=== PATIENT | male | born 1930 | race Caucasian/White ===

== ENCOUNTER 2020-11-04 09:57 | Inpatient (IN) | payer MEDICARE, OTHER ==
[~2020-11-04] VITALS: Ht 165.1 cm; Wt 56.9 kg
[2020-11-04] MEDS ORDERED: MEMA10TA PO (10:27)
[2020-11-04] MEDS ORDERED: VALS80TA2 PO (10:27)
[2020-11-04] MEDS ORDERED: ZINC1CAP3 PO (10:27)
[2020-11-04] MEDS ORDERED: ACET-73 PO (10:27)
[2020-11-04] MEDS ORDERED: ATOR10TA PO (10:27)
[2020-11-04] MEDS ORDERED: ASCO500C17 PO (10:27)
[2020-11-04] MEDS ORDERED: DOCU-141 PO (10:27)
[2020-11-04] MEDS ORDERED: MULT-439 PO (10:27)
[2020-11-04] MEDS ORDERED: ESCI10TA PO (10:27)
[2020-11-04] MEDS ORDERED: IV NS 0.9% 1,000 ML BAG IV ONE (10:30)
[2020-11-04 10:49] LABS: BASOPHILS % (AUTO) 0.2 % (0.0-2.0); EOSINOPHILS % (AUTO) 0.8 % (0.0-6.0); HEMATOCRIT 21 % (39-51); LYMPHOCYTES # (AUTO) 1.3 /CMM (0.8-4.8); LYMPHOCYTES % (AUTO) 18.4 % (20.0-44.0); MEAN CORPUSCULAR HGB CONC 29 g/dl (31.0-36.0); MEAN CORPUSCULAR VOLUME 113 fL (80-96); MONOCYTES # (AUTO) 0.4 /CMM (0.1-1.30); MONOCYTES % (AUTO) 5.9 % (2.0-12.0); NEUTROPHILS # (AUTO) 5.4 /CMM (1.8-8.9); NEUTROPHILS % (AUTO) 74.7 % (43.0-81.0); PLATELET COUNT (AUTO) 158 /CMM (150-450); WHITE BLOOD COUNT (AUTO) 7.3 K/uL (4.3-11.0)
[2020-11-04 11:00] LABS: BILIRUBIN,URINE Negative (NEGATIVE); BLOOD, URINE Large Ery/uL (NEGATIVE); COLOR,URINE YELLOW (YELLOW); LEUKOCYTE ESTERASE ,URINE Large (NEGATIVE); NITRITE, URINE Positive (NEGATIVE); PH,URINE 5.5 (5.0-8.0); PROTEIN,URINE 100 mg/dl (NEGATIVE); RED BLOOD CELL COUNT(AUTO) 1.89 MIL/uL (4.5-6.0); UGLUCOSE Negative (NEGATIVE); UROBILINOGEN,URINE 0.2 EU/dL (0.2)
[2020-11-04 11:01] LABS: HEMOGLOBIN 6.2 g/dL (13.5-17.5)
--- NOTE | 2020-11-04 11:04 | NUR ---
CALLED NURSING SUP FOR TELE BED.
--- NOTE | 2020-11-04 11:06 | NUR ---
DR. HILLS IS PMD.
[2020-11-04 11:12] LABS: ALANINE AMINOTRANSFERASE 31 U/L (12-78); ALBUMIN 1.8 g/dL (3.4-5.0); ALKALINE PHOSPHATASE 88 U/L (46-116); ASPARTATE AMINOTRANSFERASE 34 U/L (15-37); BILIRUBIN,DIRECT 0.1 mg/dL (0.0-0.2); BILIRUBIN,TOTAL 0.3 mg/dL (0.2-1.0); CALCIUM, SERUM 9.8 mg/dL (8.5-10.1); CARBON DIOXIDE 16 mmol/L (21-32); CREATININE 4.3 mg/dL (0.6-1.3); GLUCOSE 192 mg/dL (74-106); LIPASE 57 U/L (73-393); TOTAL PROTEIN, SERUM 6.1 g/dL (6.4-8.2)
[2020-11-04 11:30] LABS: BACTERIA,URINE Many /HPF (None Seen)
[2020-11-04] MEDS ORDERED: CEFTRIAXONE 1GM BAG (ER ONLY) 1 GM/50 ML PIGGYBACK IV ONE (11:30)
[2020-11-04] MEDS ORDERED: CEFTRIAXONE 1GM BAG (ER ONLY) 50 ML IV ONE (11:30)
[2020-11-04 11:31] LABS: SQUAMOUS EPITHELIAL CELL,UR Rare /HPF (None Seen); WBC,URINE TOO NUMEROUS TO COUN /HPF (0-3)
--- NOTE | 2020-11-04 12:03 | NUR ---
Status quo No acute changes. VS Await admission
[2020-11-04 12:12] LABS: CHLORIDE 126 mmol/L (98-107); SODIUM SERUM 156 mmol/L (136-145)
[2020-11-04 12:16] LABS: UREA NITROGEN, BLOOD 114 mg/dL (7-18)
[2020-11-04] MEDS ORDERED: ALBUTEROL FS 2.5 MG/3 ML VIAL.NEB ONE (12:22)
[2020-11-04] MEDS ORDERED: CALCIUM CHLORIDE 1,000 MG/10 ML DISP.SYRIN ONE (12:29)
[2020-11-04] MEDS ORDERED: ALBUTEROL FS 2.5 MG/3 ML VIAL.NEB NEB ONE (12:30)
[2020-11-04] MEDS ORDERED: CALCIUM CHLORIDE 1,000 MG/10 ML DISP.SYRIN IV ONE (12:30)
--- NOTE | 2020-11-04 13:30 | NUR ---
No beds available at this time. To CT
[2020-11-04] MEDS ORDERED: FUROSEMIDE 40 MG/4 ML VIAL IV ONE (16:30)
[2020-11-04] MEDS ORDERED: Sodium Bicarbonate 150 MEQ in IV D5W 1,000 ML IV PRN (16:30)
[2020-11-04] MEDS ORDERED: SODIUM POLYSTYRENE SULFONATE 15 G/60 ML BOTTLE RC ONE (16:30)
[2020-11-04] MEDS ORDERED: DEXTROSE 50%-WATER 50 ML DISP.SYRIN IV PRN (16:30)
[2020-11-04] MEDS: BLOOD SUGAR DIAGNOSTIC 1 EACH STRIP IN SCH ×2 (17:30→22:00)
[2020-11-04 18:06] LABS: BAND % (MANUAL) 2 % (0.0-5.0); LYMPHOCYTES % (MANUAL) 28 % (16-48); MONOCYTES % (MANUAL) 5 % (0-11.0); NEUTROPHILS % (MANUAL) 65 (42-76)
--- NOTE | 2020-11-04 19:00 | NUR ---
Nurse Marie Billy w/JORGE Garcia for Continuity of Care
--- NOTE | 2020-11-04 19:13 | NUR ---
BED 105
--- NOTE | 2020-11-04 19:15 | NUR ---
PT TO BED 8 PER FAMILY HE HAS HAD WEAKNESS X2 DAYS. PT AAOX0, VSS. NAD NOTED. PT ON 3L O2 VIA NC. PT HAS SKIN TEARS ON LEFT ARM.
--- NOTE | 2020-11-04 20:37 | NUR ---
pt assigend to 328-1
--- NOTE | 2020-11-04 21:26 | NUR ---
REPORT GIVEN TO JORGE VILLAREAL FOR SUMAN
--- NOTE | 2020-11-04 21:42 | NUR ---
called stacie from blood bank, 2 units of [facility]bc [facility], not available at this time.
[2020-11-04] MEDS: ATORVASTATIN 10 MG TABLET PO SCH (22:00)
[2020-11-04] MEDS: DOCUSATE SODIUM 100 MG CAPSULE PO SCH (22:00)
[2020-11-04 22:38] LABS: CARBON DIOXIDE 22 mmol/L (21-32); CREATININE 3.6 mg/dL (0.6-1.3); GLUCOSE 130 mg/dL (74-106)
--- NOTE | 2020-11-04 22:43 | NUR ---
SPOKE W/ PANCHO, HEALTHCARE PARTNER FOR PT'S TRANSFER REFURSAL. PER PANCHO, SHE WILL SPEAK W/ WEIR FISHERMAN
[2020-11-04 22:58] LABS: SODIUM SERUM 158 mmol/L (136-145)
[2020-11-04 22:59] LABS: CHLORIDE 126 mmol/L (98-107); POTASSIUM 6.6 mmol/L (3.5-5.1); UREA NITROGEN, BLOOD 102 mg/dL (7-18)
[2020-11-04 23:34] VITALS: BP 116/85
--- NOTE | 2020-11-04 23:35 | NUR ---
PLC ENGINEER: ADMISSION 89 Y/O male appears confused, does not follow commands. Skin checked done, coccyx open wound. Aleman cath to gravity, urine cloudy with sediments. Made patient comfortable in bed. Fall; Skin precaution maintained.
[2020-11-05] VITALS (8 sets, daily range): BP systolic 112–137; BP diastolic 50–75
[2020-11-05] MEDS ORDERED: ONDANSETRON HCL/PF 4 MG/2 ML VIAL IV PRN (00:30)
[2020-11-05] MEDS ORDERED: IV NS 0.9% 1,000 ML IV PRN (00:30)
--- NOTE | 2020-11-05 00:50 | NUR ---
BUILDING ILLUMINATING ENGINEER: CLARIFICATION ORDERS Called spoke with Dr. Manjarrez, clarified orders for IVF, with orders to dc IVF NS @ 75ml/hr and continue on Sodium Bicarb as active order by Dr. Vera.
--- NOTE | 2020-11-05 02:40 | NUR ---
HEALTH INFORMATION CLERK: BLOOD TRANSFUSION Cheikh Yip patient's grandson consented procedure. Blood transfusion verification checklist completed by 2 RN's. Started 1st unit of PRBC co-signed by JORGE Brown.
--- NOTE | 2020-11-05 03:00 | NUR ---
ADMINISTRATIVE ASSISTANT COORDINATOR: PRBC TRANSFUSING BP remains stable, afebrile, no hematuria. Blood transfusion in progress.
--- NOTE | 2020-11-05 03:33 | NUR ---
DIRECTOR INTEGRATED: PRBC TRANSFUSING BP remains stable, afebrile, no hematuria. Blood transfusion in progress.
--- NOTE | 2020-11-05 05:38 | NUR ---
SUPPLY TECH: BLOOD INFUSED PRBC 1 unit infused, VS stable. No Hematuria, no fever or chills.
--- NOTE | 2020-11-05 06:00 | NUR ---
PACKAGE CLERK: BLOOD TRANSFUSION Blood transfusion verification checklist completed by 2 RN's. 2nd unit of PRBC started co-signed by JORGE Brown.
--- NOTE | 2020-11-05 07:19 | NUR ---
SERVICE CENTER APPRAISER: END OF SHIFT REPORT Patient in bed, confused, does not follow commands. 2nd unit PRBC transfusing, VS remains stable, afebrile, no chills, no hematuria. AFIB HR 111 in the Tele monitor. Oxygen sat on high 90's at 3L via NC. Coccyx open wound, skin precaution maintained. Wound consult to follow. Endorsed to JORGE Villalobos.
[2020-11-05] MEDS: BLOOD SUGAR DIAGNOSTIC 1 EACH STRIP IN SCH ×4 (07:56→21:41)
[2020-11-05] MEDS: PANTOPRAZOLE 40 MG TABLET.DR PO SCH (07:56)
--- NOTE | 2020-11-05 08:00 | NUR ---
RN Opening note Received patient in bed awake able to responds all stimuli, does no appears pain or discomfort. ptient is on RBC 2nd bag, no s/s of reaction observed. Skin is warm to touch keep clean/dry, intact IV site on right FA 22g. Respiratory even and unlabored with oxygen at 3LPM O2sat 95%, no sbo or distress observed. Kept bed locked with elevated HOB for ensure airway and aspiration precaution also lowest bed position for safety. Call light within reach will continue to monitor.
--- NOTE | 2020-11-05 08:30 | NUR ---
Blood transfusion id done, V/S t-98.8, bp-112/69, r-20, p-104, O2sat 95%. No s/s of reaction from blood transfusion, skin is warm to touch no skin rash observed. Will continue to monitor. Addendum: 11/05/20 at 1551 by MARYBETH FUENTES RN Evelio
--- NOTE | 2020-11-05 08:30 | NUR ---
Blood transfusion done, V/S: t-98.8, bp-112/69, r-20, p-104, O2sat 95%. No s/s of reaction from blood transfusion, skin is warm to touch no skin rash observed. Will continue to monitor.
[2020-11-05] MEDS: ASCORBIC ACID 500 MG TABLET PO SCH (09:27)
[2020-11-05] MEDS: MULTIVITAMINS,THERAGRAN 1 UDTAB TABLET PO SCH (09:27)
[2020-11-05] MEDS: ZINC SULFATE 220 MG CAPSULE PO SCH (09:27)
[2020-11-05] MEDS: ESCITALOPRAM OXALATE (10 MG) 10 MG TABLET PO SCH (09:28)
[2020-11-05] MEDS: MEMANTINE HCL 5 MG TABLET PO SCH (09:28)
[2020-11-05 09:41] LABS: BASOPHILS % (AUTO) 0.2 % (0.0-2.0); EOSINOPHILS % (AUTO) 0.3 % (0.0-6.0); HEMATOCRIT 31 % (39-51); HEMOGLOBIN 9.7 g/dL (13.5-17.5); LYMPHOCYTES # (AUTO) 1.5 /CMM (0.8-4.8); LYMPHOCYTES % (AUTO) 14.8 % (20.0-44.0); MEAN CORPUSCULAR HGB CONC 32 g/dl (31.0-36.0); MEAN CORPUSCULAR VOLUME 95 fL (80-96); MONOCYTES # (AUTO) 0.5 /CMM (0.1-1.30); MONOCYTES % (AUTO) 5.3 % (2.0-12.0); NEUTROPHILS # (AUTO) 8.2 /CMM (1.8-8.9); NEUTROPHILS % (AUTO) 79.4 % (43.0-81.0); PLATELET COUNT (AUTO) 167 /CMM (150-450); RED BLOOD CELL COUNT(AUTO) 3.25 MIL/uL (4.5-6.0); WHITE BLOOD COUNT (AUTO) 10.4 K/uL (4.3-11.0)
[2020-11-05 10:26] LABS: ALANINE AMINOTRANSFERASE 32 U/L (12-78); ALBUMIN 1.8 g/dL (3.4-5.0); ALKALINE PHOSPHATASE 88 U/L (46-116); ASPARTATE AMINOTRANSFERASE 30 U/L (15-37); BILIRUBIN,TOTAL 0.6 mg/dL (0.2-1.0); CALCIUM, SERUM 9.4 mg/dL (8.5-10.1); CARBON DIOXIDE 21 mmol/L (21-32); GLUCOSE 107 mg/dL (74-106); MAGNESIUM 2.2 mg/dL (1.8-2.4); PHOSPHORUS 4.9 mg/dL (2.5-4.9); POTASSIUM 5.4 mmol/L (3.5-5.1); TOTAL PROTEIN, SERUM 6.1 g/dL (6.4-8.2)
[2020-11-05 10:31] LABS: CHLORIDE 126 mmol/L (98-107); SODIUM SERUM 160 mmol/L (136-145)
[2020-11-05 10:32] LABS: UREA NITROGEN, BLOOD 92 mg/dL (7-18)
[2020-11-05 10:59] LABS: CREATINE KINASE, TOTAL 236 U/L (39-308); FERRITIN 3097 ng/mL (8-388)
[2020-11-05] MEDS: CEFTRIAXONE 1 G in IV D5W 50 ML IV SCH (11:28)
[2020-11-05 13:39] LABS: IRON, SERUM 25 ug/dl (50-175); TOTAL IRON BINDING CAPACITY 152 ug/dl (250-450)
[2020-11-05] MEDS: Sodium Bicarbonate 100 MEQ in IV D5/0.45 NACL 1,000 ML IV PRN (17:57)
--- NOTE | 2020-11-05 18:15 | NUR ---
RN Closing note Patient in bed resting does no appears pain or distress, skin care done include sacral wound care. Skin is warm to touch intact IV site on left arm 22g running Sodium Bicarbonate at 100ml. Respiratory even and unlabored with oxygen at 3LPM via n/c. Kept locked bed with elevated HOB for ensure airway and aspiration precaution also lowest position for safety, call light within reach, will endorse building coordinator.
--- NOTE | 2020-11-05 18:54 | NUR ---
Patient noted positive blood Cx: Gram variable bacilli, informed MD.
--- NOTE | 2020-11-05 19:50 | NUR ---
STOCK UNLOADER NOTE: PATIENT RESTING IN BED, NO ACUTE DISTRESS NOTED. BREATHING EVEN AND UNLABORED, NO SOB NOTED. IV TO LEFT ARM IN PLACE, INFUSING D5 1/2 NA BICARBONATE AT 100ML/HR. PIPER CATHETER IN PLACE, DRAINING CLEAR YELLOW URINE. BED LOCKED AND IN LOWEST POSITION, CALL LIGHT IN REACH. WILL CONTINUE TO MONITOR.
[2020-11-05] MEDS ORDERED: MEGE40TA5 PO (20:38)
[2020-11-05] MEDS ORDERED: RISP0.5T5 PO (20:38)
[2020-11-05] MEDS: DOCUSATE SODIUM 100 MG CAPSULE PO SCH (21:41)
[2020-11-05] MEDS: ATORVASTATIN 10 MG TABLET PO SCH (21:41)
--- NOTE | 2020-11-05 23:00 | NUR ---
BOX SPINNER NOTE: PATIENT BLOOD SUGAR LEVEL 92MG/DL, NO INSULIN NEEDED PER SLIDING SCALE. NO S/S OF HYPOGLYCEMIA NOTED. SNACKS PROVIDED. WILL CONTINUE TO MONITOR.
[2020-11-06] MEDS: Sodium Bicarbonate 100 MEQ in IV D5/0.45 NACL 1,000 ML IV PRN (04:39)
--- NOTE | 2020-11-06 06:30 | NUR ---
TRUCK LEASING MANAGER NOTE: PATIENT RESTING IN BED, NO ACUTE DISTRESS NOTED. BREATHING EVEN AND UNLABORED, NO SOB NOTED. IV TO LEFT ARM IN PLACE, INFUSING D5 1/2 NA BICARBONATE AT 100ML/HR. PIPER CATHETER IN PLACE, DRAINED 525ML OF CLEAR YELLOW URINE. PATIENT BLOOD SUGAR LEVEL 110MG/DL, NO INSULIN NEEDED PER SLIDING SCALE. NO S/S OF HYPER/HYPOGLYCEMIA NOTED. BED LOCKED AND IN LOWEST POSITION, CALL LIGHT IN REACH. WILL ENDORSE TO DAY NURSE TO CONTINUE WITH PLAN OF CARE.
[2020-11-06] MEDS: BLOOD SUGAR DIAGNOSTIC 1 EACH STRIP IN SCH ×4 (06:35→22:17)
[2020-11-06 06:54] LABS: BASOPHILS % (AUTO) 0.2 % (0.0-2.0); EOSINOPHILS % (AUTO) 0.4 % (0.0-6.0); HEMATOCRIT 33 % (39-51); HEMOGLOBIN 10.2 g/dL (13.5-17.5); LYMPHOCYTES # (AUTO) 1.9 /CMM (0.8-4.8); LYMPHOCYTES % (AUTO) 17.6 % (20.0-44.0); MEAN CORPUSCULAR HGB CONC 31 g/dl (31.0-36.0); MEAN CORPUSCULAR VOLUME 95 fL (80-96); MONOCYTES # (AUTO) 0.5 /CMM (0.1-1.30); MONOCYTES % (AUTO) 4.6 % (2.0-12.0); NEUTROPHILS # (AUTO) 8.5 /CMM (1.8-8.9); NEUTROPHILS % (AUTO) 77.2 % (43.0-81.0); PLATELET COUNT (AUTO) 142 /CMM (150-450); RED BLOOD CELL COUNT(AUTO) 3.46 MIL/uL (4.5-6.0); WHITE BLOOD COUNT (AUTO) 11.1 K/uL (4.3-11.0)
--- NOTE | 2020-11-06 07:30 | NUR ---
RN OPENING NOTE PATIENT RESTING IN BED, NO ACUTE DISTRESS NOTED. ON O2 AT 3L/MIN. BREATHING EVEN AND UNLABORED, NO SOB NOTED. IV TO LEFT ARM IN PLACE, INFUSING D5 1/2 NS AT 100ML/HR. PIPER CATHETER IN PLACE, DRAINING CLEAR YELLOW URINE. BED LOCKED AND IN LOWEST POSITION, CALL LIGHT IN REACH. WILL CONTINUE TO MONITOR.
[2020-11-06 07:36] LABS: ALANINE AMINOTRANSFERASE 27 U/L (12-78); ALBUMIN 1.7 g/dL (3.4-5.0); ALKALINE PHOSPHATASE 84 U/L (46-116); ASPARTATE AMINOTRANSFERASE 27 U/L (15-37); BILIRUBIN,TOTAL 0.4 mg/dL (0.2-1.0); CARBON DIOXIDE 23 mmol/L (21-32); CREATININE 2.4 mg/dL (0.6-1.3); GLUCOSE 136 mg/dL (74-106); MAGNESIUM 2.1 mg/dL (1.8-2.4); PHOSPHORUS 4.6 mg/dL (2.5-4.9); POTASSIUM 4.6 mmol/L (3.5-5.1); TOTAL PROTEIN, SERUM 6.1 g/dL (6.4-8.2); UREA NITROGEN, BLOOD 76 mg/dL (7-18)
[2020-11-06 07:50] LABS: CHLORIDE 127 mmol/L (98-107); SODIUM SERUM 163 mmol/L (136-145)
--- NOTE | 2020-11-06 07:50 | NUR ---
RECEIVED CALL FROM LAB RE: CRITICAL LAB RESULTS. SODIUM IS 163 AND CHLORIDE IS 127. NOTIFIED DR. LAN. AWAITING FOR RESPONSE.
[2020-11-06 08:00] VITALS: BP 135/84
[2020-11-06] MEDS: ZINC SULFATE 220 MG CAPSULE PO SCH (08:45)
[2020-11-06] MEDS: ASCORBIC ACID 500 MG TABLET PO SCH (08:45)
[2020-11-06] MEDS: PANTOPRAZOLE 40 MG TABLET.DR PO SCH (08:45)
[2020-11-06] MEDS: ESCITALOPRAM OXALATE (10 MG) 10 MG TABLET PO SCH (08:45)
[2020-11-06] MEDS: MEMANTINE HCL 5 MG TABLET PO SCH (08:45)
[2020-11-06] MEDS: MULTIVITAMINS,THERAGRAN 1 UDTAB TABLET PO SCH (08:45)
--- NOTE | 2020-11-06 09:15 | NUR ---
PER DR. LAN. CHANGE IV FLUIDS WITH D5W AT 100ML/.HR
[2020-11-06] MEDS: IV D5W 1,000 ML IV PRN (09:59)
[2020-11-06 10:07] LABS: PTH, INTACT 29 pg/mL (15-65)
[2020-11-06] MEDS: CEFTRIAXONE 1 G in IV D5W 50 ML IV SCH (10:22)
--- NOTE | 2020-11-06 11:30 | NUR ---
pt accidentally pulled out his iv. iv access reinserted on L forearm g20. intact and patent and flushing well
[2020-11-06 12:00] VITALS: BP 105/58
[2020-11-06 16:00] VITALS: BP 156/71
--- NOTE | 2020-11-06 19:46 | NUR ---
RN CLOSING NOTES PATIENT RESTING IN BED, NO ACUTE DISTRESS NOTED. ON O2 AT 3L/MIN. BREATHING EVEN AND UNLABORED, NO SOB NOTED, SATURATING WELL. NO SIGNS AND SYMPTOMS OF PAIN OR DISCOFORT. IV ACCESS NOTED ON L FOREARM G20. INTACT AND PATENT AND FLUSHING WELL WITH D5W RUNNING AT 100ML/HR. PIPER CATHETER IN PLACE, DRAINING CLEAR YELLOW URINE. WOUND CARE TX DONE. ALL NEEDS MET AND ATTENDED. ALL DUE MEDS ADMINISTERED. NO ASE NOTED. KEPT PT CLEAN AND DRY. SAFETY PRECAUTIONS IN PLACE. BED LOCKED AND IN LOWEST POSITION, CALL LIGHT IN REACH. ENDORSED TO JAILENE PATEL CLIPPING MARKER FOR SUMAN.
--- NOTE | 2020-11-06 19:47 | NUR ---
RN PM OPENING NOTE REPORT RECIEVED FROM NEGAR PATEL. PATIENT IN BED, NO APPARENT DISTRESS NOTED. ON O2 AT 3L/MIN. BREATHING EVEN AND UNLABORED, NO SOB NOTED, SATURATING WELL. NO SIGNS AND SYMPTOMS OF PAIN OR DISCOFORT. IV ACCESS NOTED ON L FOREARM G20. INTACT AND PATENT AND FLUSHING WELL WITH D5W RUNNING AT 100ML/HR. PIPER CATHETER IN PLACE, DRAINING CLEAR YELLOW URINE. WOUND CARE TX DONE. ALL NEEDS MET AND ATTENDED. ALL DUE MEDS ADMINISTERED. NO ASE NOTED. KEPT PT CLEAN AND DRY. SAFETY PRECAUTIONS IN PLACE. BED LOCKED AND IN LOWEST POSITION, CALL LIGHT IN REACH. WILL CONT TO MONITOR.
[2020-11-06 20:00] VITALS: BP 110/44
--- NOTE | 2020-11-06 21:14 | NUR ---
MEGACE NOT ORDERED GRANDSON UPSET; REQUESTING ENSURE WITH MEALS. pepe strong called. UPATED WITH GRANDFATHERS CONDITOIN AND POC. PEPE UPSET THAT MEGACE HAS NOT BEEN GIVEN WHILE HERE AT HOSPITAL AND REQUESTING THAT IT BE ORDERED. INFORMED THAT WILL FOLLOW UP WITH DOCTOR. ALL REQUESTING ENSURE BE ORDERED WITH MEALS. WILL ENDORSE TO DAY SHIFT TO FOLLOW UP WITH DOCTOR.
[2020-11-06] MEDS: DOCUSATE SODIUM 100 MG CAPSULE PO SCH (22:03)
[2020-11-06] MEDS: ATORVASTATIN 10 MG TABLET PO SCH (22:03)
[2020-11-06] MEDS: ACETAMINOPHEN 325 MG TABLET PO PRN (22:32)
[2020-11-07] VITALS: BP 129/54
[2020-11-07] MEDS: IV D5W 1,000 ML IV PRN ×2 (03:15→18:30)
[2020-11-07 04:00] VITALS: BP 112/57
[2020-11-07] MEDS: BLOOD SUGAR DIAGNOSTIC 1 EACH STRIP IN SCH ×4 (06:35→21:30)
[2020-11-07] MEDS: INSULIN REGULAR, HUMAN 100 UNIT/ML 3 ML VIAL SQ PRN (06:36)
--- NOTE | 2020-11-07 07:06 | NUR ---
INFRASTRUCTURE SOLUTIONS ARCHITECT OPENING NOTES RECEIVED PT RESTING IN BED AT THIS TIME. PT AOX1. CONFUSE. NO SOB NOTED, NO S/S OF ANY ACUTE DISTRESS NOTED. NO C/O PAIN AT THIS TIME. RESPIRATIONS ARE EVEN AND UNLABORED. IV ACCESS NOTED IN LFA G#22, INTACT, PATENT AND FLUSHING WELL. PT ON EXTERNAL TELE CATH LAB NURSE READING SR IN 90S. PIPER CATHETER IN PLACE, DRAINING TO GRAVITY, CLEAR YELLOW URINE OUTPUT. ASPIRATION AND SAFETY PRECAUTION IN PLACE AND MAINTAINED AT ALL TIMES. BED IN LOWEST LOCKED POSITION, HOB ELEVATED, SIDE RAILS UP X 2, CALL LIGHT AND TABLE WITHIN REACH. WILL CONTINUE TO MONITOR
[2020-11-07 08:00] VITALS: BP 119/55
[2020-11-07] MEDS: ESCITALOPRAM OXALATE (10 MG) 10 MG TABLET PO SCH (08:29)
[2020-11-07] MEDS: MEMANTINE HCL 5 MG TABLET PO SCH (08:29)
[2020-11-07] MEDS: MULTIVITAMINS,THERAGRAN 1 UDTAB TABLET PO SCH (08:29)
[2020-11-07] MEDS: PANTOPRAZOLE 40 MG TABLET.DR PO SCH (08:29)
[2020-11-07] MEDS: ZINC SULFATE 220 MG CAPSULE PO SCH (08:29)
[2020-11-07] MEDS: ASCORBIC ACID 500 MG TABLET PO SCH (08:29)
[2020-11-07] MEDS ORDERED: Z GUARD REMEDY 2 OZ OINT TP PRN (10:00)
--- NOTE | 2020-11-07 10:00 | NUR ---
WOUND CARE CONSULT: PT PRESENTS WITH FOUL PURULENT STAGE 4 SACRAL ULCER, PRESENT ON ADMISSION. RECOMMEND SURGICAL CONSULT. DR LOMELI NOTIFIED OF CONSULT REQUEST. RECOMMENDATIONS MADE FOR SKIN PROTECTION. DISCUSSED WITH NURSING STAFF. [facility] IN AGREEMENT WITH PLAN OF CARE. Addendum: 11/07/20 at 1002 by BOBBI PRADHAN WNDNU Amended: Links added.
[2020-11-07] MEDS: Z GUARD REMEDY 2 OZ OINT TP SCH (10:37)
[2020-11-07] MEDS: CEFTRIAXONE 1 G in IV D5W 50 ML IV SCH (10:43)
[2020-11-07 12:00] VITALS: BP 120/61
[2020-11-07] MEDS ORDERED: LIDOCAINE 1%-EPI 1:100,000 20 ML VIAL TP STA (12:44)
--- NOTE | 2020-11-07 12:57 | NUR ---
PT SCHEDULED FOR SERIAL DEBRIDEMENT OF THE SACRUM, TELEPHONE CONSENT OBTAINED FROM TOSHIA FRAIRE, PT's DAUGHTER ([phone]). WITNESSED AND SIGNED BY A SECOND NURSE, KENA. CONSENT FILED IN CHART. WILL CONTINUE TO MONITOR AND CONTINUE WITH PLAN OF CARE
--- NOTE | 2020-11-07 15:20 | NUR ---
S/P SERIAL DEBRIDEMENT OF SACRUM PERFORMED AT BED SIDE. WOUND SPECIMEN SEND TO LAB. WILL CONTINUE TO MONITOR
[2020-11-07] MEDS: DAKINS QUARTER STRENGTH (0.125%) 480 ML BOTTLE TOP SCH (15:39)
[2020-11-07 16:00] VITALS: BP 121/62
--- NOTE | 2020-11-07 16:43 | NUR ---
Geotechnical Engineer consult requested by Dr. Kinza Manjarrez as patient has a sacral wound. SW attempted to speak with Cheikh Alfredo, patient's daughter ([phone]) as patient is alert and oriented x2. Cheikh was unavailable and SW left a voicemail with this SW contact information. Plan: EMMANUEL will follow-up with Cheikh to provide more information.
[2020-11-07 17:17] LABS: BASOPHILS % (AUTO) 0.1 % (0.0-2.0); EOSINOPHILS % (AUTO) 4.2 % (0.0-6.0); HEMATOCRIT 28 % (39-51); HEMOGLOBIN 8.8 g/dL (13.5-17.5); LYMPHOCYTES # (AUTO) 0.9 /CMM (0.8-4.8); LYMPHOCYTES % (AUTO) 9.2 % (20.0-44.0); MEAN CORPUSCULAR HGB CONC 32 g/dl (31.0-36.0); MEAN CORPUSCULAR VOLUME 93 fL (80-96); MONOCYTES # (AUTO) 0.3 /CMM (0.1-1.30); NEUTROPHILS # (AUTO) 8.1 /CMM (1.8-8.9); NEUTROPHILS % (AUTO) 83.5 % (43.0-81.0); PLATELET COUNT (AUTO) 118 /CMM (150-450); RED BLOOD CELL COUNT(AUTO) 2.95 MIL/uL (4.5-6.0); WHITE BLOOD COUNT (AUTO) 9.7 K/uL (4.3-11.0)
[2020-11-07 17:44] LABS: ALANINE AMINOTRANSFERASE 20 U/L (12-78); ALKALINE PHOSPHATASE 67 U/L (46-116); ASPARTATE AMINOTRANSFERASE 22 U/L (15-37); BILIRUBIN,TOTAL 0.3 mg/dL (0.2-1.0); CALCIUM, SERUM 8.4 mg/dL (8.5-10.1); CARBON DIOXIDE 23 mmol/L (21-32); CHLORIDE 124 mmol/L (98-107); GLUCOSE 103 mg/dL (74-106); MAGNESIUM 1.9 mg/dL (1.8-2.4); PHOSPHORUS 3.2 mg/dL (2.5-4.9); POTASSIUM 3.4 mmol/L (3.5-5.1); TOTAL PROTEIN, SERUM 5.1 g/dL (6.4-8.2); UREA NITROGEN, BLOOD 68 mg/dL (7-18)
[2020-11-07 18:07] LABS: ALBUMIN 1.4 g/dL (3.4-5.0); SODIUM SERUM 159 mmol/L (136-145)
--- NOTE | 2020-11-07 18:52 | NUR ---
RACHAEL ROLL TESTER REPORTED CRITICAL RESULT FOR SODIUM 159, ALBUMIN 1.4 AND POTASSIUM 3.4. REPORT READ BACK. DR HILLS AND MARLO, CHARGE NURSE MADE AWARE. RECEIVED ORDERS FROM DR HILLS TO CONTINUE SAME ORDERS ON PT, ADMINISTER KCL 10MEQ IV OVER 1HOUR AND ENSURE PO TID. ORDERS CARRIED OUT. WILL CONTINUE TO MONITOR
[2020-11-07] MEDS ORDERED: POTASSIUM CHLORIDE 10 MEQ/50 ML PREMIXED IVPB FOR PERIPHERAL LINE IV ONE (19:00)
--- NOTE | 2020-11-07 19:00 | NUR ---
AMPOULE WASHING MACHINE OPERATOR CLOSING NOTES PT RESTING IN BED COMFORTABLY AT THIS TIME. PT REMAINED STABLE THROUGHOUT SHIFT. ALL CARE, NEED, MEDICATIONS AND TREATMENT ADMINISTERED ANTICIPATED PER ORDER. PT KEPT CLEAN AND DRY. WOUND TREATMENT DONE. PIPER CATHETER CARE PROVIDED. PT REPOSITIONED Q2HRS AND PRN. ASPIRATION AND SAFETY PRECAUTION IN PLACE AND MAINTAINED AT ALL TIMES. BED IN LOWEST LOCKED POSITION, HOB ELEVATED, SIDE RAILS UP X 2, CALL LIGHT AND TABLE WITHIN REACH. WILL CONTINUE TO MONITOR.
--- NOTE | 2020-11-07 19:05 | NUR ---
DIESEL INSPECTOR CLOSING NOTES PT RESTING IN BED AT THIS TIME. PT REMAINED STABLE THROUGHOUT SHIFT. ALL CARE, NEED, MEDICATIONS AND TREATMENT ADMINISTERED ANTICIPATED PER ORDER. PT KEPT CLEAN AND DRY. WOUND TREATMENT DONE. PIPER CATHETER CARE PROVIDED. PT REPOSITIONED Q2HRS AND PRN. ASPIRATION AND SAFETY PRECAUTION IN PLACE AND MAINTAINED AT ALL TIMES. BED IN LOWEST LOCKED POSITION, HOB ELEVATED, SIDE RAILS UP X 2, CALL LIGHT AND TABLE WITHIN REACH. WILL CONTINUE TO MONITOR.
--- NOTE | 2020-11-07 19:42 | NUR ---
ENDORSED TO PIT INSPECTOR NURSE FOR SUMAN
--- NOTE | 2020-11-07 19:50 | NUR ---
HIGHWAY PAINTER OPENING NOTES RECEIVED PATIENT RESTING IN BED COMFORTABLY; A/OX1, CONFUSED; BREATHING EVEN AND UNLABORED; SLIGHT CRACKLES NOTED UPON INSPIRATION; NO SOB NOTED; TOLERATING 4LPM VIA NC; TELE MONITOR READS SINUS RHYTHM - SINUS TACHY; L FA # 22 INTACT; TOLERATING IVF WELL; PIPER IN PLACE WITH YELLOW URINE NOTED; SAFETY PRECAUTIONS IMPLEMENTED; BED LOCKED IN LOW POSITION; SIDE RAILX2; WILL CONT TO MONITOR
[2020-11-07 20:00] VITALS: BP_SYST 11; BP_SYST 115; BP_DIAS 57
[2020-11-07 20:25] LABS: EOSINOPHILS % (MANUAL) 7 % (0-4); LYMPHOCYTES % (MANUAL) 13 % (16-48); MONOCYTES % (MANUAL) 4 % (0-11.0); NEUTROPHILS % (MANUAL) 76 (42-76)
[2020-11-07] MEDS: ATORVASTATIN 10 MG TABLET PO SCH (21:17)
[2020-11-07] MEDS: DOCUSATE SODIUM 100 MG CAPSULE PO SCH (21:17)
--- NOTE | 2020-11-07 22:06 | NUR ---
COMMUNITY RELATIONS ADVISOR NOTES PATIENT ARRIVED TO UNIT VIA GURNEY, ACCOMPANIED BY ER STAFF; PATIENT A/OX3-4, WOLOF SPEAKING; NO SOB NOTED; TOLERATING ROOM AIR WELL; SATTING 98%; PATIENT AMBULATORY WITH STEADY GAIT; BILATERAL LOWER EXTREMITY EDEMA NOTED; BELONGINGS CHECKED; TELE MONITOR READS A PACING 60S; PACEMAKER PRESENT; R AC #18 INTACT, FLUSHING WELL; PATIENT ORIENTED TO UNIT AND TO STAFF; PATIENT UNABLE TO UNDERSTAND BULGARIAN; ATTEMPTED TO CONTACT FAMILY MEMBER ON FILE, BUT PHONE IS CURRENTLY OFF; CHARGE NURSE AWARE; WILL ATTEMPT TO CONTACT FAMILY FOR PATIENT MEDICAL HX AGAIN; SAFETY PRECAUTIONS IMPLEMENTED; BED LOCKED IN LOW POSITION; SIDE RAILSX2; CALL LIGHT WITHIN REACH; WILL CONT TO MONITOR Addendum: 11/07/20 at 2237 by MARYCHUY NASH RN ERROR, WRONG PATIENT
--- NOTE | 2020-11-07 22:06 | NUR ---
METER SHOP SUPERINTENDENT NOTES PATIENT CONFUSED, PULLED OUT IV SITE; CURRENTLY REFUSING IV RE-INSERTION; WILL CONT TO MONITOR
[2020-11-08] VITALS: BP 120/56
--- NOTE | 2020-11-08 00:48 | NUR ---
LINE FISHER NOTES PATIENT CONFUSED AND ATTEMPTING TO PULL OUT PIPER CATH; PATIENT PULLED OUT IV SITE EARLIER, MD MADE AWARE; PER MD, OKAY FOR RESTRAINTS; CHARGE NURSE AWARE; WILL CARRY OUT ORDERS; WILL CONT TO MONITOR
--- NOTE | 2020-11-08 03:58 | NUR ---
PLANT CYTOLOGIST NOTES PATIENT IS HARD STICK, MULTIPLE IV ATTEMPTS; MD MADE AWARE; PER SUDHEER HUNTER FOR MIDLINE INSERTION; CHARGE NURSE AND NURSING CUSTOM FRAMING SPECIALIST MADE AWARE; WILL CONT TO MONITOR PATIENT UNABLE TO RECEIVE FULL BAG OF POTASSIUM; WILL INFORM DAY SHIFT, CHARGE NURSE AWARE;
[2020-11-08 04:00] VITALS: BP 104/51
--- NOTE | 2020-11-08 04:30 | NUR ---
BIOMEDICAL ELECTRONICS TECHNICIAN NOTES RESTRAINTS REMOVED; PATIENT IS MORE CALM, WILL CONT TO ASSESS/MONITOR; WILL INFORM DAY SHIFT REGARDING RESTRAINT ORDER IF NEEDED; CHARGE NURSE AWARE
[2020-11-08] MEDS: BLOOD SUGAR DIAGNOSTIC 1 EACH STRIP IN SCH ×4 (06:35→21:45)
--- NOTE | 2020-11-08 06:58 | NUR ---
POLYETHYLENE BAG MACHINE OPERATOR CLOSING NOTES PATIENT RESTING IN BED, COMFORTABLY; A/OX1, CONFUSED; BREATHING EVEN AND UNLABORED; TOLERATING 4LPM VIA NC WELL; NO SOB NOTED; NO DISTRESS NOTED; TELE MONITOR READS SINUS RHYTHM - SINUS TACHY; L INDEX FINGER #24, IN PLACE FOR TIME BEING, WILL INFORM DAY SHIFT REGARDING MIDLINE INSERTION THIS AM; RESTRAINTS CURRENTLY RELEASED; PATIENT CALM AND ABLE TO FOLLOW COMMANDS, WILL ALSO INFORM DAY SHIFT REGARDING PRN RESTRAINTS IF NEEDED; PIPER IN PLACE WITH YELLOW OUTPUT OF 350CC; PATIENT FAMILY MEMBER CALLED AND REPORTED PATIENT TAKES 40MG PO DAILY OF MEGACE TO INCREASE APPETITE; WILL INFORM DAY SHIFT; WOUND CARE RENDERED; ALL NEEDS RENDERED; SAFETY PRECAUTIONS IMPLEMENTED; WILL ENDORSE SUMAN TO ONCOMING SHIFT
[2020-11-08] MEDS: PANTOPRAZOLE 40 MG TABLET.DR PO SCH (07:24)
[2020-11-08 07:56] LABS: BASOPHILS % (AUTO) 0.2 % (0.0-2.0); EOSINOPHILS % (AUTO) 0.4 % (0.0-6.0); HEMATOCRIT 33 % (39-51); LYMPHOCYTES # (AUTO) 2.3 /CMM (0.8-4.8); LYMPHOCYTES % (AUTO) 19.5 % (20.0-44.0); MEAN CORPUSCULAR HGB CONC 31 g/dl (31.0-36.0); MEAN CORPUSCULAR VOLUME 95 fL (80-96); MONOCYTES # (AUTO) 0.5 /CMM (0.1-1.30); MONOCYTES % (AUTO) 4.4 % (2.0-12.0); NEUTROPHILS # (AUTO) 8.8 /CMM (1.8-8.9); NEUTROPHILS % (AUTO) 75.5 % (43.0-81.0); PLATELET COUNT (AUTO) 142 /CMM (150-450); RED BLOOD CELL COUNT(AUTO) 3.43 MIL/uL (4.5-6.0); WHITE BLOOD COUNT (AUTO) 11.7 K/uL (4.3-11.0)
[2020-11-08 08:00] VITALS: BP 95/44
--- NOTE | 2020-11-08 08:00 | NUR ---
Tele/RN - Assessment Patient is awake, alert to self, confused, combative at times, reality orientation provided, on oxygen at 4lpm via NC, not in any form of respiratory distress, no s/s of pain, remain afebrile. Aleman catheter in place, draining well, with good urine output. Peripheral IV on the right finger is patent, intact, flushing well, with no signs of infiltration. Wound treatment done as ordered. Fall and aspiration precautions maintained. Will continue with current medical management.
[2020-11-08 08:12] LABS: ALANINE AMINOTRANSFERASE 27 U/L (12-78); ALBUMIN 1.7 g/dL (3.4-5.0); ALKALINE PHOSPHATASE 82 U/L (46-116); ASPARTATE AMINOTRANSFERASE 31 U/L (15-37); BILIRUBIN,TOTAL 0.6 mg/dL (0.2-1.0); CALCIUM, SERUM 9.1 mg/dL (8.5-10.1); CARBON DIOXIDE 23 mmol/L (21-32); CHLORIDE 125 mmol/L (98-107); CREATININE 2.2 mg/dL (0.6-1.3); GLUCOSE 97 mg/dL (74-106); MAGNESIUM 2.1 mg/dL (1.8-2.4); PHOSPHORUS 3.6 mg/dL (2.5-4.9); POTASSIUM 4.2 mmol/L (3.5-5.1); TOTAL PROTEIN, SERUM 6.4 g/dL (6.4-8.2); UREA NITROGEN, BLOOD 70 mg/dL (7-18)
[2020-11-08] MEDS: ZINC SULFATE 220 MG CAPSULE PO SCH (08:20)
[2020-11-08] MEDS: ASCORBIC ACID 500 MG TABLET PO SCH (08:20)
[2020-11-08] MEDS: DAKINS QUARTER STRENGTH (0.125%) 480 ML BOTTLE TOP SCH (08:20)
[2020-11-08] MEDS: MEMANTINE HCL 5 MG TABLET PO SCH (08:20)
[2020-11-08] MEDS: MULTIVITAMINS,THERAGRAN 1 UDTAB TABLET PO SCH (08:20)
[2020-11-08] MEDS: ESCITALOPRAM OXALATE (10 MG) 10 MG TABLET PO SCH (08:20)
[2020-11-08] MEDS: ENSURE ENLIVE 237 ML LIQUID (VANILLA) PO SCH ×3 (08:20→16:21)
[2020-11-08] MEDS: Z GUARD REMEDY 2 OZ OINT TP SCH (08:21)
[2020-11-08 08:35] LABS: SODIUM SERUM 162 mmol/L (136-145)
[2020-11-08] MEDS: CEFTRIAXONE 1 G in IV D5W 50 ML IV SCH (10:10)
--- NOTE | 2020-11-08 10:54 | NUR ---
SW Family Contact: Patient is a 89 year old male who lives at [address] [place] [address]; ([phone]). This SW gathered collateral from patient's daughter Gus ([phone]) who stated she is aware of patient's wound. Gus stated pt has had this wound for 7 months. She reported he has seen multiple would specialist and they have done home visits to help pt recover, however, it has not improved. Gus reported that she cares for pt and family is also involved in his treatment. Gus states patient also has a caregiver at home. She reported prior admission, pt has developed poor appetite and has become weak. Gus stated pt will require assistance with his ADLs and would want treatment team to be attentive. This grant writer actively listened and provided comfort in regards to patient's concern. This SW asked if pt will require any sort of resources, Gus stated at the moment she does not need resources. This grant writer explained to Gus that the treatment team has already started pt's procedure called debridement, per charge nurse Hortencia. Gus, was understanding with treatment.
[2020-11-08 12:00] VITALS: BP 91/43
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
[2020-11-08 16:00] VITALS: BP 117/49
[2020-11-08] MEDS: INSULIN REGULAR, HUMAN 100 UNIT/ML 3 ML VIAL SQ PRN (17:01)
[2020-11-08] MEDS: IV D5W 1,000 ML IV PRN ×2 (17:04→22:38)
--- NOTE | 2020-11-08 18:46 | NUR ---
Tele/RN - End of shift summary No significant change in condition noted, alert to self, frequent reorientation provided, afebrile, no s/s of pain, no apparent distress, ST on the monitor. IVF infusing well on the STARR mid-line with no s/s of infiltration. Fall and aspiration precautions maintained. Will continue with current plan of care.
--- NOTE | 2020-11-08 19:48 | NUR ---
CAP CUTTER OPENING NOTES PATIENT RESTING IN BED COMFORTABLY; A/OX1, CONFUSED; BREATHING EVENLY AND UNLABORED; PATIENT TOLERATING 4LPM VIA NC WELL; TELE MONITOR READS SINUS TACHY; STARR MIDLINE INTACT AND PATENT, FLUSHING WELL; TOLERATING IVF WELL; PIPER CATH IN PLACE WITH YELLOW OUTPUT; SAFETY PRECAUTIONS IMPLEMENTED; BED LOCKED IN LOW POSITION; SIDE RAILSX2; CALL LIGHT WITHIN REACH; WILL CONT TO MONITOR
[2020-11-08 20:00] VITALS: BP 112/48
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
[2020-11-08] MEDS: ATORVASTATIN 10 MG TABLET PO SCH (21:46)
[2020-11-08] MEDS: DOCUSATE SODIUM 100 MG CAPSULE PO SCH (21:46)
[2020-11-09] VITALS: BP 123/62
--- NOTE | 2020-11-09 01:14 | NUR ---
HUMAN RESOURCES SUPPORT SPECIALIST NOTES VERONIQUE AGUILAR IN PLACE, YELLOW, GERA OUTPUT WITH SLIGHT HEMATURIA NOTED WITH SEDIMENTS; CHARGE NURSE AWARE; WILL CONT TO MONITOR Addendum: 11/09/20 at 0228 by MARYCHUY NASH RN CREDIT CLERK JACKSON LINDSAY NP MADE AWARE; PER , CONTINUE TO MONITOR AND OKAY TO RESTRAIN PATIENT IF NEEDED; WILL CONT TO MONITOR
--- NOTE | 2020-11-09 02:33 | NUR ---
BAKERY DECORATOR NOTES PER FAMILY, PATIENT TAKES 40MG PO MEGACE DAILY TO INCREASE APPETITE AND TAKES 0.25MG PO RISPERDAL TO ASSIST WITH SLEEP AT NIGHT; SALES ACCOUNT LEADER MD PAZ MADE AWARE; PER MD, CONTINUE BOTH MEDICATIONS; ORDERS RECEIVED AND CARRIED OUT; WILL CONT TO MONITOR PATIENT
[2020-11-09 04:00] VITALS: BP_SYST 106; BP_SYST 123; BP_DIAS 62; BP_DIAS 64
[2020-11-09] MEDS: BLOOD SUGAR DIAGNOSTIC 1 EACH STRIP IN SCH ×4 (06:40→21:40)
--- NOTE | 2020-11-09 07:00 | NUR ---
WELL CLEANER CLOSING NOTES PATIENT RESTING IN BED COMFORTABLY; A/OX1, CONFUSED; BREATHING EVENLY AND UNLABORED; TOLERATING 3LPM VIA NC, TOLERATING O2 TITRATION WELL; SATTING 96%; NO DISTRESS NOTED; NO SOB NOTED; TELE MONITOR READS SINUS TACHY 105; L UA MIDLINE INTACT AND PATENT, FLUSHING WELL; TOLERATING IVF WELL; PIPER IN PLACE, WITH YELLOW/GERA OUTPUT 250CC, HEMATURIA NOTED; MD AND CHARGE NURSE AWARE; NO NEW ORDERS AT THIS TIME, PER MD CONT TO MONITOR FOR CHANGES AND OKAY TO USE RESTRAINTS IF NEEDED TO AVOID PATIENT PULLING; WILL INFORM DAY SHIFT; ALL NEEDS RENDERED; SAFETY PRECAUTIONS IMPLEMENTED; WILL ENDORSE SUMAN TO ONCOMING SHIFT
--- NOTE | 2020-11-09 07:30 | NUR ---
Tele/RN - Assessment Patient is awake, alert to self, confused, combative at times, reality orientation provided, on oxygen at 4lpm via NC, not in any form of respiratory distress, no s/s of pain, remain afebrile. Aleman catheter in place, draining well, with good urine output. STARR Midline is patent, intact, flushing well, with no signs of infiltration. IVF infusing well. Wound treatment done as ordered. Fall and aspiration precautions maintained. Will continue with current medical management.
[2020-11-09] MEDS: PANTOPRAZOLE 40 MG TABLET.DR PO SCH (07:59)
[2020-11-09 08:00] VITALS: BP 122/48
[2020-11-09] MEDS: ZINC SULFATE 220 MG CAPSULE PO SCH (08:03)
[2020-11-09] MEDS: MULTIVITAMINS,THERAGRAN 1 UDTAB TABLET PO SCH (08:03)
[2020-11-09] MEDS: ASCORBIC ACID 500 MG TABLET PO SCH (08:03)
[2020-11-09] MEDS: MEMANTINE HCL 5 MG TABLET PO SCH (08:03)
[2020-11-09] MEDS: ENSURE ENLIVE 237 ML LIQUID (VANILLA) PO SCH ×3 (08:03→16:04)
[2020-11-09] MEDS: ESCITALOPRAM OXALATE (10 MG) 10 MG TABLET PO SCH (08:03)
[2020-11-09] MEDS: MEGESTROL ACETATE 40 MG TABLET PO SCH (08:04)
[2020-11-09] MEDS: Z GUARD REMEDY 2 OZ OINT TP SCH (08:04)
[2020-11-09] MEDS: DAKINS QUARTER STRENGTH (0.125%) 480 ML BOTTLE TOP SCH (08:05)
[2020-11-09 08:43] LABS: CALCIUM, SERUM 8.5 mg/dL (8.5-10.1); CARBON DIOXIDE 21 mmol/L (21-32); CHLORIDE 122 mmol/L (98-107); CREATININE 1.9 mg/dL (0.6-1.3); GLUCOSE 130 mg/dL (74-106); POTASSIUM 3.2 mmol/L (3.5-5.1); UREA NITROGEN, BLOOD 64 mg/dL (7-18)
[2020-11-09 08:45] LABS: BASOPHILS % (AUTO) 0.2 % (0.0-2.0); EOSINOPHILS % (AUTO) 0.8 % (0.0-6.0); HEMATOCRIT 28 % (39-51); HEMOGLOBIN 8.4 g/dL (13.5-17.5); LYMPHOCYTES # (AUTO) 1.3 /CMM (0.8-4.8); LYMPHOCYTES % (AUTO) 14.8 % (20.0-44.0); MEAN CORPUSCULAR HGB CONC 30 g/dl (31.0-36.0); MEAN CORPUSCULAR VOLUME 97 fL (80-96); MONOCYTES # (AUTO) 0.4 /CMM (0.1-1.30); MONOCYTES % (AUTO) 4.1 % (2.0-12.0); NEUTROPHILS % (AUTO) 80.1 % (43.0-81.0); PLATELET COUNT (AUTO) 107 /CMM (150-450); RED BLOOD CELL COUNT(AUTO) 2.88 MIL/uL (4.5-6.0); WHITE BLOOD COUNT (AUTO) 8.8 K/uL (4.3-11.0)
[2020-11-09 09:55] LABS: SODIUM SERUM 156 mmol/L (136-145)
[2020-11-09] MEDS: CEFTRIAXONE 1 G in IV D5W 50 ML IV SCH (10:24)
[2020-11-09] MEDS ORDERED: POTASSIUM CHLORIDE 20 MEQ POWDER PACKET PO ONE (10:30)
[2020-11-09 11:22] LABS: BAND % (MANUAL) 1 % (0.0-5.0); LYMPHOCYTES % (MANUAL) 14 % (16-48); MONOCYTES % (MANUAL) 6 % (0-11.0); NEUTROPHILS % (MANUAL) 79 (42-76)
[2020-11-09] MEDS: INSULIN REGULAR, HUMAN 100 UNIT/ML 3 ML VIAL SQ PRN (12:24)
[2020-11-09] MEDS: IV D5W 1,000 ML IV PRN ×2 (13:17→19:21)
[2020-11-09 15:07] LABS: *SPE A/G RATIO 0.6 (0.7-1.7); *SPE ALBUMIN 1.9 g/dL (2.9-4.4); *SPE ALPHA-1-GLOBULIN 0.5 g/dL (0.0-0.4); *SPE ALPHA-2-GLOBULIN 1.1 g/dL (0.4-1.0); *SPE BETA GLOBULIN 0.8 g/dL (0.7-1.3); *SPE GLOBULIN, TOTAL 3.4 g/dL (2.2-3.9); *SPE M-SPIKE Not Observed g/dL (Not Observed); *SPEGAMMA GLOBULIN 1.1 g/dL (0.4-1.8)
--- NOTE | 2020-11-09 18:50 | NUR ---
MS/RN - End of shift summary No significant change in condition noted, alert to self, frequent reorientation provided, afebrile, no s/s of pain, no apparent distress. IVF D5 at 175 ml/hr infusing well on the STARR mid-line with no s/s of infiltration. Aleman in place, draining well. Fall and aspiration precautions maintained. Will continue with current plan of care.
--- NOTE | 2020-11-09 19:45 | NUR ---
MS RN NOTES RECEIVED ON BED A/O X 1,CONFUSED,COMBATIVE AT TIMES WITH CARE REPORTED.BREATHING NON LABORED,O2 2L/NC IN USED TO KEEP O2 SAT ABOVE 90%.WITH PIPER CATH IN PLACE DRAINING REDDISH BROWN SCANTY URINE OUTPUT.NOTED MULTIPLE SKIN DISCOLORATION ON BOTH UPPER EXTREMITIES.WITH STARR MIDLINE FOR MEDS,PRESENT IF INFUSING AT 175ML/HR RATE VIA IV PUMP.FALL PRECAUTION OBSERVED,BED ALARM, WILL CONTINUE TO MONITOR STATUS.
[2020-11-09 20:00] VITALS: BP_SYST 123; BP_DIAS 96; BP_DIAS 98
[2020-11-09] MEDS: risperiDONE 0.25 MG TABLET PO SCH (21:20)
[2020-11-09] MEDS: ATORVASTATIN 10 MG TABLET PO SCH (21:21)
[2020-11-09] MEDS: DOCUSATE SODIUM 100 MG CAPSULE PO SCH (21:21)
[2020-11-09] MEDS: ACETAMINOPHEN 325 MG TABLET PO PRN (21:23)
--- NOTE | 2020-11-09 21:23 | NUR ---
MS RN NOTES SKIN WARM TO THE TOUCH,TYLENOL 650MG PO GIVEN WITH APPLE SAUCE,TAKEN WELL.NEGATIVE FOR ASPIRATION
[2020-11-09] MEDS: *INSULIN REGULAR(HUMULIN R)HUM 100 UNIT/ML VIAL SQ PRN (22:06)
[2020-11-10] MEDS: IV D5W 1,000 ML IV PRN ×2 (02:28→12:35)
--- NOTE | 2020-11-10 03:00 | NUR ---
MS RN NOTES NOTED PIPER CATHETER WITH SCANTY OUTPUT,BLADDER SCANNED DONE AND IT SHOWS 700ML,CHARGE NURSE MADE AWARE.BLADDER IRRIGATION DONE WITH 30ML STERILE WATER,REPOSITION PATIENT.NOW ITS DRAINING WITH BLOODY URINE,TO BROWNISH RED,EMPTIED 720 PLUS IRRIGATION OF 30ML STERILE WATER.
[2020-11-10] MEDS: BLOOD SUGAR DIAGNOSTIC 1 EACH STRIP IN SCH ×4 (05:42→22:04)
[2020-11-10] MEDS: INSULIN REGULAR, HUMAN 100 UNIT/ML 3 ML VIAL SQ PRN (05:44)
--- NOTE | 2020-11-10 05:45 | NUR ---
MS RN NOTES ACCU-CHECK BLOOD SUGAR CHECK 134,COVERED WITH HUMULIN R 2 UNITS PER SLIDING SCALE.
--- NOTE | 2020-11-10 06:34 | NUR ---
MS RN NOTES LATEST TEMP 98.3,PIPER CATH DRAINS BLOODY URINE,EMPTIED A TOTAL OF 850ML.REPOSITION PER PROTOCOL,SACRAL WOUND DRESSING CHANGE DONE.IN NO ACUTE DISTRESS.WILL ENDORSE TO DAY NURS EFOR SUMAN,
--- NOTE | 2020-11-10 07:25 | NUR ---
ms rn received on bed, awake,alert,oriented x1,not in any form of distress, patient w/ celis to gravity bag w/ bloody urine output, md aware per oracle application architect, no s/s of pain at this tiem,arepositioned for comfort,all needs attended.
[2020-11-10 08:00] VITALS: BP 90/57
[2020-11-10 08:14] LABS: BASOPHILS % (AUTO) 0.2 % (0.0-2.0); EOSINOPHILS % (AUTO) 0.4 % (0.0-6.0); HEMATOCRIT 24 % (39-51); HEMOGLOBIN 7.6 g/dL (13.5-17.5); MEAN CORPUSCULAR HGB CONC 32 g/dl (31.0-36.0); MEAN CORPUSCULAR VOLUME 92 fL (80-96); MONOCYTES # (AUTO) 0.2 /CMM (0.1-1.30); MONOCYTES % (AUTO) 2.6 % (2.0-12.0); NEUTROPHILS # (AUTO) 5.4 /CMM (1.8-8.9); NEUTROPHILS % (AUTO) 81.8 % (43.0-81.0); PLATELET COUNT (AUTO) 86 /CMM (150-450); RED BLOOD CELL COUNT(AUTO) 2.55 MIL/uL (4.5-6.0); WHITE BLOOD COUNT (AUTO) 6.6 K/uL (4.3-11.0)
--- NOTE | 2020-11-10 08:35 | NUR ---
ms rn due meds given,tolerated w/ crushed pills and honey thick liquids.
[2020-11-10 08:36] LABS: ALANINE AMINOTRANSFERASE 39 U/L (12-78); ALKALINE PHOSPHATASE 64 U/L (46-116); ASPARTATE AMINOTRANSFERASE 60 U/L (15-37); BILIRUBIN,TOTAL 0.4 mg/dL (0.2-1.0); CALCIUM, SERUM 8.1 mg/dL (8.5-10.1); CARBON DIOXIDE 22 mmol/L (21-32); CHLORIDE 109 mmol/L (98-107); GLUCOSE 124 mg/dL (74-106); MAGNESIUM 1.7 mg/dL (1.8-2.4); PHOSPHORUS 1.8 mg/dL (2.5-4.9); POTASSIUM 3.8 mmol/L (3.5-5.1); SODIUM SERUM 142 mmol/L (136-145); TOTAL PROTEIN, SERUM 5.4 g/dL (6.4-8.2); UREA NITROGEN, BLOOD 64 mg/dL (7-18)
[2020-11-10 08:56] LABS: LYMPHOCYTES % (MANUAL) 7 % (16-48); MONOCYTES % (MANUAL) 4 % (0-11.0); NEUTROPHILS % (MANUAL) 89 (42-76)
--- NOTE | 2020-11-10 09:00 | NUR ---
ms rn speech therapist at bedside side, honey nectar liquids recommended,still not good for regular puree.
[2020-11-10] MEDS: ASCORBIC ACID 500 MG TABLET PO SCH (09:11)
[2020-11-10] MEDS: MEMANTINE HCL 5 MG TABLET PO SCH (09:11)
[2020-11-10] MEDS: ZINC SULFATE 220 MG CAPSULE PO SCH (09:11)
[2020-11-10] MEDS: MULTIVITAMINS,THERAGRAN 1 UDTAB TABLET PO SCH (09:11)
[2020-11-10] MEDS: MEGESTROL ACETATE 40 MG TABLET PO SCH (09:12)
[2020-11-10] MEDS: ESCITALOPRAM OXALATE (10 MG) 10 MG TABLET PO SCH (09:12)
[2020-11-10] MEDS: PANTOPRAZOLE 40 MG TABLET.DR PO SCH (09:16)
[2020-11-10 09:27] LABS: ALBUMIN 1.4 g/dL (3.4-5.0)
[2020-11-10] MEDS: ENSURE ENLIVE 237 ML LIQUID (VANILLA) PO SCH ×3 (09:32→17:00)
--- NOTE | 2020-11-10 09:50 | NUR ---
ms rn was seen by doctor asaf, was aware of bloody urine output,awaiting for orders.
--- NOTE | 2020-11-10 10:30 | NUR ---
ms rn fever of 100.8, sponge bath done will recheck temp.
--- NOTE | 2020-11-10 11:00 | NUR ---
ms rn temp-98.5,no distress noted.
[2020-11-10] MEDS: CEFTRIAXONE 1 G in IV D5W 50 ML IV SCH (12:35)
[2020-11-10] MEDS: Magnesium 1GM/D5W 100ML PREMIX 100 ML IV SCH ×2 (12:36→13:38)
[2020-11-10] MEDS: DAKINS QUARTER STRENGTH (0.125%) 480 ML BOTTLE TOP SCH (12:50)
[2020-11-10] MEDS: Z GUARD REMEDY 2 OZ OINT TP SCH (12:51)
[2020-11-10] MEDS ORDERED: Sodium Phosphate 30 MMOL in IV NS 0.9% 250 ML IV SCH (13:00)
[2020-11-10] MEDS ORDERED: K PHOS NEUTRAL 250 MG TABLET PO ONE (14:30)
[2020-11-10] MEDS: ACETAMINOPHEN 325 MG TABLET PO PRN (15:36)
--- NOTE | 2020-11-10 18:00 | NUR ---
ms rn on bed, no distress noted, will endorsed to client delivery manager for continuity of care.
[2020-11-10 18:56] VITALS: BP 90/57
[2020-11-10 20:00] VITALS: BP 96/43
--- NOTE | 2020-11-10 20:15 | NUR ---
MS RN OPENING NOTES RECEIVED PATIENT RESTING ON BED A/O X 1, CONFUSED, FORGETFUL. BREATHING NON LABORED, O2 2L/NC IN USED TO KEEP O2 SAT ABOVE 90%.WITH PIPER CATH IN PLACE DRAINING REDDISH BROWN SCANTY URINE OUTPUT, PER AM RN REPORT, DR. HILLS SAW THE URINE COLOR & IS AWARE ABOUT LESS OUTPUT, NO NEW ORDERS AT THIS TIME. .NOTED MULTIPLE SKIN DISCOLORATION ON BOTH UPPER EXTREMITIES. WITH STARR MIDLINE FOR MEDS, PRESENT & INFUSING D5W AT 60 ML/HR RATE VIA IV PUMP. FALL PRECAUTION OBSERVED, BED ALARM ON, WILL CONTINUE TO MONITOR ANY CHANGES DURING THE SHIFT.
[2020-11-10 20:20] VITALS: BP 96/43
[2020-11-10 22:30] VITALS: BP 103/55
[2020-11-10] MEDS: risperiDONE 0.25 MG TABLET PO SCH (22:31)
[2020-11-10] MEDS: ATORVASTATIN 10 MG TABLET PO SCH (22:31)
[2020-11-10] MEDS: DOCUSATE SODIUM 100 MG CAPSULE PO SCH (22:32)
--- NOTE | 2020-11-10 22:35 | NUR ---
MS RN NOTE PATIENT'S VITALS ARE 103/55, 104, 18, 98, 96% @ 2LPM. ALL SCHEDULED MEDS GIVEN & TOLERATED WELL. WILL CONTINUE TO MONITOR THE PATIENT FOR ANY CHANGES.
[2020-11-11] MEDS: IV D5W 1,000 ML IV PRN (06:15)
[2020-11-11 07:08] LABS: BASOPHILS % (AUTO) 0.1 % (0.0-2.0); EOSINOPHILS % (AUTO) 0.1 % (0.0-6.0); HEMATOCRIT 24 % (39-51); HEMOGLOBIN 7.4 g/dL (13.5-17.5); LYMPHOCYTES # (AUTO) 0.8 /CMM (0.8-4.8); LYMPHOCYTES % (AUTO) 12.7 % (20.0-44.0); MEAN CORPUSCULAR HGB CONC 31 g/dl (31.0-36.0); MEAN CORPUSCULAR VOLUME 94 fL (80-96); MONOCYTES # (AUTO) 0.1 /CMM (0.1-1.30); MONOCYTES % (AUTO) 1.6 % (2.0-12.0); NEUTROPHILS # (AUTO) 5.3 /CMM (1.8-8.9); NEUTROPHILS % (AUTO) 85.5 % (43.0-81.0); PLATELET COUNT (AUTO) 86 /CMM (150-450); WHITE BLOOD COUNT (AUTO) 6.2 K/uL (4.3-11.0)
--- NOTE | 2020-11-11 07:14 | NUR ---
MS RN NOTE PATIENT'S BS IS 78 MG/DL, IVF RUNNING D5W @ 60 ML/HR. ENDORSED TO AM RN FOR CONTINUITY OF CARE.
--- NOTE | 2020-11-11 07:17 | NUR ---
MS RN OPENING NOTES PATIENT RECEIVED AWAKE IN BED IN NO ACUTE SIGNS OF DISTRESS. HOB ELEVATED. A/O X 1. CONFUSED AND FORGETFUL. QUIET AND CALM AND APPEARS COMFORTABLE AT THIS TIME. ON O2 AT 2LPM VIA N/C, TOLERATING WELL WITH NO SOB NOTED. STARR MIDLINE IN PLACE WITH IVF OF D5W AT 60 ML/HR INFUSING WELL. PIPER CATH IN PLACE DRAINING REDDISH BROWN URINE OUTPUT. SAFETY AND FALL PRECAUTION IN PLACE: BED IN LOWEST LOCKED POSITION WITH SR UP X2. BED ALARM ON AND CALL LIGHT W/IN REACH. WILL CONTINUE TO MONITOR PT ACCORDINGLY.
[2020-11-11] MEDS: BLOOD SUGAR DIAGNOSTIC 1 EACH STRIP IN SCH ×4 (07:18→22:37)
[2020-11-11 07:21] LABS: CALCIUM, SERUM 7.9 mg/dL (8.5-10.1); CARBON DIOXIDE 20 mmol/L (21-32); CHLORIDE 109 mmol/L (98-107); CREATININE 2.2 mg/dL (0.6-1.3); GLUCOSE 97 mg/dL (74-106); PHOSPHORUS 6.7 mg/dL (2.5-4.9); POTASSIUM 3.7 mmol/L (3.5-5.1); SODIUM SERUM 143 mmol/L (136-145); UREA NITROGEN, BLOOD 70 mg/dL (7-18)
--- NOTE | 2020-11-11 07:23 | NUR ---
MS RN OPENING NOTES PATIENT RESTING ON BED A/O X 1, REMAINS CONFUSED, FORGETFUL. BREATHING NON LABORED, O2 2L/NC IN USED TO KEEP O2 SAT ABOVE 90%.WITH PIPER CATH IN PLACE DRAINING REDDISH BROWN SCANTY URINE OUTPUT 350 ML, PER AM RN REPORT, DR. HILLS SAW THE URINE COLOR & IS AWARE ABOUT LESS OUTPUT, NO NEW ORDERS AT THIS TIME. WITH STARR RIOS FOR MEDS, PRESENT & INFUSING D5W AT 60 ML/HR RATE VIA IV PUMP. FALL PRECAUTION OBSERVED, BED ALARM ON, ENDORSED AM RN FOR CONTINUITY OF CARE. Addendum: 11/11/20 at 0730 by REYNALDO GREEN RN CLOSING NOTES.
[2020-11-11 08:00] VITALS: BP 116/57
[2020-11-11] MEDS: ZINC SULFATE 220 MG CAPSULE PO SCH (08:21)
[2020-11-11] MEDS: PANTOPRAZOLE 40 MG TABLET.DR PO SCH (08:21)
[2020-11-11] MEDS: ESCITALOPRAM OXALATE (10 MG) 10 MG TABLET PO SCH (08:21)
[2020-11-11] MEDS: MEGESTROL ACETATE 40 MG TABLET PO SCH (08:21)
[2020-11-11] MEDS: MULTIVITAMINS,THERAGRAN 1 UDTAB TABLET PO SCH (08:21)
[2020-11-11] MEDS: MEMANTINE HCL 5 MG TABLET PO SCH (08:21)
[2020-11-11] MEDS: ASCORBIC ACID 500 MG TABLET PO SCH (09:20)
[2020-11-11] MEDS: ENSURE ENLIVE 237 ML LIQUID (VANILLA) PO SCH ×3 (09:21→17:06)
[2020-11-11] MEDS: Z GUARD REMEDY 2 OZ OINT TP SCH (09:21)
[2020-11-11] MEDS: DAKINS QUARTER STRENGTH (0.125%) 480 ML BOTTLE TOP SCH (09:22)
[2020-11-11] MEDS: INSULIN REGULAR, HUMAN 100 UNIT/ML 3 ML VIAL SQ PRN ×2 (12:00→17:36)
[2020-11-11] MEDS: CEFTRIAXONE 1 G in IV D5W 50 ML IV SCH (12:01)
--- NOTE | 2020-11-11 13:45 | NUR ---
RN NOTES PT SEEN BY DR HILLS WITH ORDER TO INSERT THREE WAY PIPER CATHETER AND START NS IRRIGATION PRN TOLERATED.
--- NOTE | 2020-11-11 14:01 | NUR ---
RN NOTES PT NOTED WITH HEMATURIA WITH SEDIMENTS ON URINARY BAG. DR HILLS AWARE. THREE WAY PIPER CATHETER FR#16 INSERTED AND NS IRRIGATION CONTINUOUS TOLERATED STARTED PER MD. WILL CONTINUE TO MONITOR.
[2020-11-11 16:00] VITALS: BP 119/59
--- NOTE | 2020-11-11 18:11 | NUR ---
RN NOTES PT PULLED OUT HIS MIDLINE, NO ACTIVE BLEEDING NOTED AT SITE. INSERTED PIV ON RFA G #22 AND RESUMED IVF ORDERED. WILL CONTINUE TO MONITOR.
--- NOTE | 2020-11-11 19:08 | NUR ---
MS RN CLOSING NOTES PATIENT IN BED AWAKE AT THIS TIME. HOB ELEVATED. A/O X 1. CONFUSED AND FORGETFUL. ON O2 AT 2LPM VIA N/C, TOLERATING WELL WITH NO SOB NOTED DURING SHIFT. IV ACCESS ON RFA G#22 INTACT AND PATENT, IVF OF D5W AT 60 ML/HR INFUSING WELL. THREE WAY PIPER PIPER CATHETER IN PLACE WITH NS IRRIGATION ON GOING DRAINING LIGHT REDDISH URINE OUTPUT, PIPER CARE DONE. PT TURNED AND REPOSITIONED Q 2HRS AND PRN. ALL NEEDS AND CARE ANTICIPATED AND MET. SAFETY AND FALL PRECAUTIONS KEPT IN PLACE: BED IN LOWEST LOCKED POSITION WITH SR UP X2. BED ALARM ON AND CALL LIGHT W/IN REACH. WILL ENDORSE TO HOUSE SERVANT NURSE FOR SUMAN.
--- NOTE | 2020-11-11 19:27 | NUR ---
MS RN OPENING NOTES RECEIVED PATIENT RESTING ON BED A/O X 1, CONFUSED, FORGETFUL. BREATHING NON LABORED, O2 2L/NC IN USE TO KEEP O2 SAT ABOVE 90%.WITH PIPER CATH IN PLACE DRAINING GERA COLOR URINE OUTPUT, PER AM RN REPORT, DR. HILLS SAW THE PATIENT TODAY & ORDERED BLADDER IRRIGATION PRN TOLERATED & NS IS RUNNING FOR BLADDER IRRIGATION AT THIS TIME. NOTED MULTIPLE SKIN DISCOLORATION ON BOTH UPPER EXTREMITIES. RFA G 22 INTACT & PATENT, INFUSING D5W AT 60 ML/HR RATE VIA IV PUMP. FALL PRECAUTION OBSERVED, BED ALARM ON, WILL CONTINUE TO MONITOR ANY CHANGES DURING THE SHIFT.
[2020-11-11 20:00] VITALS: BP 128/72
[2020-11-11 20:20] VITALS: BP 128/72
[2020-11-11] MEDS: risperiDONE 0.25 MG TABLET PO SCH (22:11)
[2020-11-11] MEDS: ATORVASTATIN 10 MG TABLET PO SCH (22:11)
[2020-11-11] MEDS: DOCUSATE SODIUM 100 MG CAPSULE PO SCH (22:12)
--- NOTE | 2020-11-11 22:15 | NUR ---
MS RN NOTE PATIENT'S GRAND SON FIDELIA ORTIZ CALLED TO GET AN UPDATE ABOUT PATIENT'S HEALTH CONDITION, GAVE BRIEF UPDATE & REQUESTED FIDELIA TO DISCUSS WITH MD FOR FURTHER PLAN OF CARE. WILL ENDORSE TO AM RN TO RELAY MESSAGE TO MD IN AM TO CALL FIDELIA TO DISCUSS PLAN OF CARE.
[2020-11-12] MEDS: IV D5W 1,000 ML IV PRN ×2 (01:16→22:23)
[2020-11-12] MEDS: BLOOD SUGAR DIAGNOSTIC 1 EACH STRIP IN SCH ×4 (07:06→22:00)
--- NOTE | 2020-11-12 07:15 | NUR ---
MS RN CLOSING NOTES PATIENT RESTING ON BED A/O X 1, REMAINS CONFUSED, FORGETFUL. BREATHING NON LABORED, O2 2L/NC IN USE TO KEEP O2 SAT ABOVE 90%. WITH PIPER CATH IN PLACE DRAINING LIGHT REDDISH COLOR URINE WITH 2400 ML OUTPUT, BLADDER IRRIGATION ON PRN TOLERATED BY THE PATIENT. WITH RFA PIV G 22, INTACT/PATENT & INFUSING D5W AT 60 ML/HR RATE VIA IV PUMP. FALL PRECAUTION OBSERVED, BED ALARM ON, ENDORSED TO AM RN FOR CONTINUITY OF CARE.
[2020-11-12 08:00] VITALS: BP 140/54
[2020-11-12] MEDS: ZINC SULFATE 220 MG CAPSULE PO SCH (10:02)
[2020-11-12] MEDS: PANTOPRAZOLE 40 MG TABLET.DR PO SCH (10:02)
[2020-11-12] MEDS: MEMANTINE HCL 5 MG TABLET PO SCH (10:02)
[2020-11-12] MEDS: MEGESTROL ACETATE 40 MG TABLET PO SCH (10:02)
[2020-11-12] MEDS: ASCORBIC ACID 500 MG TABLET PO SCH (10:03)
[2020-11-12] MEDS: ESCITALOPRAM OXALATE (10 MG) 10 MG TABLET PO SCH (10:03)
[2020-11-12] MEDS: MULTIVITAMINS,THERAGRAN 1 UDTAB TABLET PO SCH (10:03)
[2020-11-12] MEDS: ENSURE ENLIVE 237 ML LIQUID (VANILLA) PO SCH ×3 (10:04→17:45)
[2020-11-12] MEDS: DAKINS QUARTER STRENGTH (0.125%) 480 ML BOTTLE TOP SCH (10:04)
[2020-11-12] MEDS: Z GUARD REMEDY 2 OZ OINT TP SCH (10:06)
[2020-11-12] MEDS: CEFTRIAXONE 1 G in IV D5W 50 ML IV SCH (12:30)
[2020-11-12 16:00] VITALS: BP 136/53
--- NOTE | 2020-11-12 18:00 | NUR ---
received pt. in am alert and oriented x1.f/c with cont. bladder irrig.some hematuria,good output.vs stable.samira in.labs to be checked in am.family calling in.
[2020-11-12] MEDS: risperiDONE 0.25 MG TABLET PO SCH (22:01)
[2020-11-12] MEDS: ATORVASTATIN 10 MG TABLET PO SCH (22:01)
[2020-11-12] MEDS: DOCUSATE SODIUM 100 MG CAPSULE PO SCH (22:02)
--- NOTE | 2020-11-12 22:19 | NUR ---
BLOOD SUGAR = 69, NO INSULIN GIVEN.
[2020-11-12 23:14] VITALS: BP 149/73
--- NOTE | 2020-11-13 06:30 | NUR ---
blood sugar checked=82, no insulin given
[2020-11-13] MEDS: BLOOD SUGAR DIAGNOSTIC 1 EACH STRIP IN SCH ×4 (07:30→21:38)
[2020-11-13 08:11] LABS: HEMATOCRIT 22 % (39-51); HEMOGLOBIN 7.2 g/dL (13.5-17.5); LYMPHOCYTES # (AUTO) 1.2 /CMM (0.8-4.8); LYMPHOCYTES % (AUTO) 17.7 % (20.0-44.0); MEAN CORPUSCULAR HGB CONC 33 g/dl (31.0-36.0); MEAN CORPUSCULAR VOLUME 90 fL (80-96); MONOCYTES # (AUTO) 0.1 /CMM (0.1-1.30); MONOCYTES % (AUTO) 1.6 % (2.0-12.0); NEUTROPHILS # (AUTO) 5.6 /CMM (1.8-8.9); NEUTROPHILS % (AUTO) 80.7 % (43.0-81.0); PLATELET COUNT (AUTO) 76 /CMM (150-450); RED BLOOD CELL COUNT(AUTO) 2.43 MIL/uL (4.5-6.0); WHITE BLOOD COUNT (AUTO) 6.9 K/uL (4.3-11.0)
[2020-11-13] MEDS: MEMANTINE HCL 5 MG TABLET PO SCH (08:19)
[2020-11-13] MEDS: MEGESTROL ACETATE 40 MG TABLET PO SCH (08:19)
[2020-11-13] MEDS: ZINC SULFATE 220 MG CAPSULE PO SCH (08:20)
[2020-11-13] MEDS: ENSURE ENLIVE 237 ML LIQUID (VANILLA) PO SCH ×3 (08:20→16:37)
[2020-11-13] MEDS: ESCITALOPRAM OXALATE (10 MG) 10 MG TABLET PO SCH (08:20)
[2020-11-13] MEDS: MULTIVITAMINS,THERAGRAN 1 UDTAB TABLET PO SCH (08:20)
[2020-11-13] MEDS: PANTOPRAZOLE 40 MG TABLET.DR PO SCH (08:20)
[2020-11-13] MEDS: ASCORBIC ACID 500 MG TABLET PO SCH (08:20)
[2020-11-13] MEDS: Z GUARD REMEDY 2 OZ OINT TP SCH (08:21)
[2020-11-13] MEDS: DAKINS QUARTER STRENGTH (0.125%) 480 ML BOTTLE TOP SCH (08:21)
[2020-11-13 10:28] LABS: CALCIUM, SERUM 7.9 mg/dL (8.5-10.1); CARBON DIOXIDE 21 mmol/L (21-32); CHLORIDE 108 mmol/L (98-107); CREATININE 2.2 mg/dL (0.6-1.3); GLUCOSE 92 mg/dL (74-106); MAGNESIUM 2.3 mg/dL (1.8-2.4); PHOSPHORUS 5.1 mg/dL (2.5-4.9); POTASSIUM 3.8 mmol/L (3.5-5.1); SODIUM SERUM 140 mmol/L (136-145); UREA NITROGEN, BLOOD 74 mg/dL (7-18)
[2020-11-13] MEDS: CEFTRIAXONE 1 G in IV D5W 50 ML IV SCH (11:35)
[2020-11-13 13:02] LABS: BAND % (MANUAL) 2 % (0.0-5.0); LYMPHOCYTES % (MANUAL) 14 % (16-48); MONOCYTES % (MANUAL) 2 % (0-11.0); NEUTROPHILS % (MANUAL) 82 (42-76)
--- NOTE | 2020-11-13 14:39 | NUR ---
MS/RN Nurse change Patient received from [facility].
[2020-11-13 16:00] VITALS: BP 123/60
--- NOTE | 2020-11-13 17:28 | NUR ---
MS/RN Blood sugar Blood sugar 75, orange juice given, will assist with dinner.
--- NOTE | 2020-11-13 19:05 | NUR ---
RN MS OPENING NOTES RECEIVED PATIENT IN BED HOD ELEVATED FOR ASPIRATION PRECAUTIONS, AWAKE AND ALERT X1 , CONFUSED, OPENS EYES, ON 3 L VIA NC TOLERATING WELL, NO SOB PRESENT, RESPIRATIONS EVEN AND UNLABORED WITH EQUAL RISE AND FALL OF CHEST ,NEW IV SITE INSERTED TO RIGHT HAND #24 G INTACT AND PATENT, OLD SITE NOTED LEAKING, REMOVED, PIPER CATHETER INTACT WITH CBI, URINE IS CLEAR DRAINING WELL, SAFETY PRECAUTIONS RENDERED, LOW BED AND LOCKED, BED ALARM IN PLACE ,ALL NEEDS ATTENDED AT THIS TIME, WILL CONTINUE TO MONITOR.
[2020-11-13 20:00] VITALS: BP 105/53
[2020-11-13 20:34] VITALS: BP 105/53
[2020-11-13] MEDS: *INSULIN REGULAR(HUMULIN R)HUM 100 UNIT/ML VIAL SQ PRN (21:38)
[2020-11-13] MEDS: risperiDONE 0.25 MG TABLET PO SCH (21:39)
[2020-11-13] MEDS: DOCUSATE SODIUM 100 MG CAPSULE PO SCH (21:39)
[2020-11-13] MEDS: ATORVASTATIN 10 MG TABLET PO SCH (21:39)
--- NOTE | 2020-11-14 01:37 | NUR ---
rn ms notes patient removes medical tubing and iv site for ivf, removes oxygen despite reorientation and distraction, made dr. guerrero aware new order for soft bilateral wrist restraints noted and carried out.
[2020-11-14] MEDS: IV D5W 1,000 ML IV PRN (01:58)
--- NOTE | 2020-11-14 02:31 | NUR ---
rn ms notes patient removed iv site he is a hard stick , unable to reinsert, charge nurse also tried to insert , icu charge tried to insert unsuccessful, md guerrero made aware patient is DM on d5w with accuchecks ranging in the 70's. new order obtained okay for iv insertion to foot. icu nurse was able to obtain iv site to left lower leg #22. ivf running as ordered.
[2020-11-14] MEDS: INSULIN REGULAR, HUMAN 100 UNIT/ML 3 ML VIAL SQ PRN (05:51)
[2020-11-14] MEDS: BLOOD SUGAR DIAGNOSTIC 1 EACH STRIP IN SCH ×4 (05:51→21:43)
--- NOTE | 2020-11-14 06:45 | NUR ---
RN MS CLOSING NOTES PATIENT IN BED HOD ELEVATED FOR ASPIRATION PRECAUTIONS, AWAKE AND ALERT X1 , CONFUSED, OPENS EYES, ON 3 L VIA NC TOLERATING WELL, NO SOB PRESENT, RESPIRATIONS EVEN AND UNLABORED WITH EQUAL RISE AND FALL OF CHEST ,NEW IV SITE INSERTED TO LEFT LOWER LEG #22 G INTACT AND PATENT, MD PAZ AWARE, OLD SITE NOTED LEAKING, REMOVED, SOFT BILATERAL WRIST RESTRAINTS INTACT SKIN CHECKS DONE WNL, PULSES PALPABLE, PIPER CATHETER INTACT WITH CBI, URINE IS CLEAR DRAINING WELL, SAFETY PRECAUTIONS RENDERED, LOW BED AND LOCKED, BED ALARM IN PLACE ,ALL NEEDS ATTENDED AT THIS TIME, WILL CONTINUE TO MONITOR AND ENDORSE TO NEXT SHIFT, WOUND CARE DONE ORDERED, Q2 REPOSITIONING AND OFFLOADING DONE, BOTH HEELS OFFLOADED.
[2020-11-14 08:00] VITALS: BP 99/46
--- NOTE | 2020-11-14 08:00 | NUR ---
m/s twx operator: initial assessment received pt in bed awake, alert to self only. on a [address] celis catheter irrigation. no hematuria noted. reality orientation provided prn. will continue to monitor.
[2020-11-14] MEDS: ENSURE ENLIVE 237 ML LIQUID (VANILLA) PO SCH ×3 (09:00→18:19)
[2020-11-14 09:15] LABS: CALCIUM, SERUM 7.6 mg/dL (8.5-10.1); CARBON DIOXIDE 19 mmol/L (21-32); CHLORIDE 106 mmol/L (98-107); CREATININE 2.4 mg/dL (0.6-1.3); GLUCOSE 109 mg/dL (74-106); SODIUM SERUM 140 mmol/L (136-145); UREA NITROGEN, BLOOD 78 mg/dL (7-18)
[2020-11-14] MEDS: MEMANTINE HCL 5 MG TABLET PO SCH (09:25)
[2020-11-14] MEDS: MULTIVITAMINS,THERAGRAN 1 UDTAB TABLET PO SCH (09:25)
[2020-11-14] MEDS: ASCORBIC ACID 500 MG TABLET PO SCH (09:25)
[2020-11-14] MEDS: ESCITALOPRAM OXALATE (10 MG) 10 MG TABLET PO SCH (09:25)
[2020-11-14] MEDS: ZINC SULFATE 220 MG CAPSULE PO SCH (09:25)
[2020-11-14] MEDS: PANTOPRAZOLE 40 MG TABLET.DR PO SCH (09:25)
[2020-11-14] MEDS: MEGESTROL ACETATE 40 MG TABLET PO SCH (09:25)
[2020-11-14] MEDS: CEFTRIAXONE 1 G in IV D5W 50 ML IV SCH (11:16)
[2020-11-14] MEDS: DAKINS QUARTER STRENGTH (0.125%) 480 ML BOTTLE TOP SCH ×2 (11:17→11:19)
[2020-11-14] MEDS: Z GUARD REMEDY 2 OZ OINT TP SCH ×2 (11:18→11:19)
--- NOTE | 2020-11-14 12:00 | NUR ---
m/s medicine technologist: md visit seen by dr. ron with orders. orders acknowledged.
--- NOTE | 2020-11-14 13:00 | NUR ---
m/s helmet hat sweatband puncher: notes report given to redd bearden) for continuity of care.
--- NOTE | 2020-11-14 13:30 | NUR ---
PT RECEIVED AFTER REPORT RECEIVED FROM JESUS DELACRUZ. PT RESTING COMFORTABLY IN BED WITH EYES CLOSED. NO S/S OR C/O PAIN OR DISTRESS NOTED. SIDE RAILS UP X2, CALL LIGHT LEFT WITHIN REACH. WILL CONTINUE PLAN OF CARE.
[2020-11-14 16:00] VITALS: BP 90/53
--- NOTE | 2020-11-14 19:59 | NUR ---
CHANGE OF SHIFT REPORT PT RESTING COMFORTABLY IN BED WITH EYES CLOSED. NO S/S OR C/O PAIN OR DISTRESS NOTED. SIDERAILS UP X2, CALL LIGHT LEFT WITHIN REACH. PT KEPT CLEAN, DRY, AND COMFORTABLE. NO SIGNIFICANT CHANGES SINCE PREVIOUS SHIFT. REPORT GIVEN TO JAY RN
[2020-11-14] MEDS: ATORVASTATIN 10 MG TABLET PO SCH (21:36)
[2020-11-14] MEDS: DOCUSATE SODIUM 100 MG CAPSULE PO SCH (21:36)
[2020-11-14] MEDS: risperiDONE 0.25 MG TABLET PO SCH (21:36)
[2020-11-14] MEDS: *INSULIN REGULAR(HUMULIN R)HUM 100 UNIT/ML VIAL SQ PRN (21:43)
[2020-11-15] MEDS: BLOOD SUGAR DIAGNOSTIC 1 EACH STRIP IN SCH ×4 (07:00→22:29)
[2020-11-15] MEDS: INSULIN REGULAR, HUMAN 100 UNIT/ML 3 ML VIAL SQ PRN (07:01)
[2020-11-15] MEDS: IV D5W 1,000 ML IV PRN ×2 (07:03→21:30)
[2020-11-15 08:00] VITALS: BP 95/67
--- NOTE | 2020-11-15 08:06 | NUR ---
Rechecked patient glucose, resulted 87. Endorsed to morning nurse.
[2020-11-15] MEDS: MULTIVITAMINS,THERAGRAN 1 UDTAB TABLET PO SCH (08:22)
[2020-11-15] MEDS: ESCITALOPRAM OXALATE (10 MG) 10 MG TABLET PO SCH (08:22)
[2020-11-15] MEDS: PANTOPRAZOLE 40 MG TABLET.DR PO SCH (08:22)
[2020-11-15] MEDS: ZINC SULFATE 220 MG CAPSULE PO SCH (08:22)
[2020-11-15] MEDS: ASCORBIC ACID 500 MG TABLET PO SCH (08:22)
[2020-11-15] MEDS: MEGESTROL ACETATE 40 MG TABLET PO SCH (08:22)
[2020-11-15] MEDS: ENSURE ENLIVE 237 ML LIQUID (VANILLA) PO SCH ×3 (08:23→17:13)
[2020-11-15] MEDS: MEMANTINE HCL 5 MG TABLET PO SCH (08:23)
[2020-11-15] MEDS: Z GUARD REMEDY 2 OZ OINT TP SCH (08:24)
[2020-11-15] MEDS: DAKINS QUARTER STRENGTH (0.125%) 480 ML BOTTLE TOP SCH (08:24)
--- NOTE | 2020-11-15 08:49 | NUR ---
RN CLOSING NOTE: Patient in bed resting comfortably. Patient breathing even and unlabored, no SOB or acute respiratory distress noted. Safety measure maintained, bed is in the lowest level, bed is locked, alarm is on, side rails x2 are up, and call light is within reach. Endorsed continuity of care to AM nurse.
--- NOTE | 2020-11-15 08:58 | NUR ---
Checked patient bilateral upper extremity circulation and skin. Skin and circulation WNL.
[2020-11-15 09:19] LABS: BASOPHILS % (AUTO) 0.2 % (0.0-2.0); HEMATOCRIT 22 % (39-51); HEMOGLOBIN 7.1 g/dL (13.5-17.5); LYMPHOCYTES # (AUTO) 0.8 /CMM (0.8-4.8); MEAN CORPUSCULAR HGB CONC 32 g/dl (31.0-36.0); MEAN CORPUSCULAR VOLUME 91 fL (80-96); MONOCYTES # (AUTO) 0.1 /CMM (0.1-1.30); MONOCYTES % (AUTO) 1.4 % (2.0-12.0); NEUTROPHILS # (AUTO) 7.9 /CMM (1.8-8.9); NEUTROPHILS % (AUTO) 89.4 % (43.0-81.0); PLATELET COUNT (AUTO) 82 /CMM (150-450); RED BLOOD CELL COUNT(AUTO) 2.45 MIL/uL (4.5-6.0); WHITE BLOOD COUNT (AUTO) 8.8 K/uL (4.3-11.0)
[2020-11-15 09:20] LABS: CALCIUM, SERUM 7.8 mg/dL (8.5-10.1); CARBON DIOXIDE 18 mmol/L (21-32); CHLORIDE 106 mmol/L (98-107); CREATININE 2.5 mg/dL (0.6-1.3); GLUCOSE 97 mg/dL (74-106); POTASSIUM 4.3 mmol/L (3.5-5.1); SODIUM SERUM 141 mmol/L (136-145)
[2020-11-15 09:24] LABS: UREA NITROGEN, BLOOD 83 mg/dL (7-18)
--- NOTE | 2020-11-15 09:30 | NUR ---
MS/RN Swallow evaluation Seen by speech therapist - patient requires close observation when feeding as very high risk of aspiration.
[2020-11-15 09:44] LABS: BASOPHILS % (MANUAL) 0 % (0.0-2.0); EOSINOPHILS % (MANUAL) 0 % (0-4); LYMPHOCYTES % (MANUAL) 10 % (16-48); MONOCYTES % (MANUAL) 2 % (0-11.0); NEUTROPHILS % (MANUAL) 88 (42-76); REACTIVE LYMPHOCYTES 0 % (0-0)
[2020-11-15] MEDS: CEFTRIAXONE 1 G in IV D5W 50 ML IV SCH (11:45)
--- NOTE | 2020-11-15 12:00 | NUR ---
MS/RN S/B Dr Marie Seen by MD - [facility] Rapid covid swab to be taken to aid in placement of patient.
[2020-11-15 16:00] VITALS: BP 118/48
--- NOTE | 2020-11-15 16:10 | NUR ---
MS/RN Covid swab Rapid covid swab taken to aid in placement of patient in senior care facility.
--- NOTE | 2020-11-15 20:52 | NUR ---
AT 2140 RECEIVED PATIENT FROM 3W VIA BED ACCOMPANIED BY 2 NURSES, PATIENT LETHARGIC ON NC AT 3L NOTED O2 MID HIGH 80S TITRATED O2 UP TO 5LPM VIA NC, NOTED ALSO BP IN 70S AT THIS TIME, ELEVATED LEGS AND REPOSITIONED PATIENT, MULTIPLE LOW BP READING GOTTEN, THE HIGHEST 85/42, INFORMED DR HILLS AND RECEIVED REPLIED WITH ORDER FOR NS 0.9 500ML BOLUS AND AFTER THAT CONTINUE WITH NS 0.9% AT 100ML/HR, AND DC D5W FLUID THAT HE IS GETTING CURRENTLY, HE ALSO ORDERED TO KEEP PATIENT TELE, NOTED AND CARRIED OUT. PATIENT WITH FC NOTED YELLOW AND CLOUDY IN COLOR, PIV LINE IN LEFT LOWER LEG PATENT AND INTACT, AFEBRILE, WILL CONTINUE TO MONITOR CLOSELY. Addendum: 11/15/20 at 2313 by RAQUEL ALFREDO RN WRONG TIME
[2020-11-15 21:40] VITALS: BP 118/48
[2020-11-15] MEDS: ATORVASTATIN 10 MG TABLET PO SCH (22:00)
[2020-11-15] MEDS: risperiDONE 0.25 MG TABLET PO SCH (22:00)
[2020-11-15] MEDS: DOCUSATE SODIUM 100 MG CAPSULE PO SCH (22:00)
--- NOTE | 2020-11-15 22:00 | NUR ---
MS RN NOTES TRANSFERRED PATIENT TO [facility] RM 108 FOR POSITIVE COVID19 SWAB, PROPER ISOLATION PRECAUTIONS OBSERVED. PATIENT REMAINED ALERT AND ORIENTED X 1. TRANSFERRED VIA ACLS. REPORT GIVEN TO KEVIN PATEL ON BEDSIDE FOR CONTINUITY OF CARE.
--- NOTE | 2020-11-15 22:21 | NUR ---
RN NOTE HELD HS MEDICATIONS, PATIENT TOO SLEEPY, UNABLE TO SWALLOW. VS. BP: 93/45 R 22 T 98.3 P 81 O2SAT 96%
[2020-11-15 22:30] VITALS: BP 85/42
--- NOTE | 2020-11-15 22:43 | NUR ---
PAGED DR HILLS TO INFORMED THAT PATIENT RECEIVED FROM 3W WITH LOW BLOOD PRESSURE 85/42, AWAITING FOR ORDERS,
[2020-11-15] MEDS ORDERED: IV NS 0.9% 500 ML IV ONE (23:00)
--- NOTE | 2020-11-15 23:00 | NUR ---
AT 2140 RECEIVED PATIENT FROM 3W VIA BED ACCOMPANIED BY 2 NURSES, PATIENT LETHARGIC ON NC AT 3L NOTED O2 MID HIGH 80S TITRATED O2 UP TO 5LPM VIA NC, NOTED ALSO BP IN 70S AT THIS TIME, ELEVATED LEGS AND REPOSITIONED PATIENT, MULTIPLE LOW BP READING GOTTEN, THE HIGHEST 85/42, INFORMED DR HILLS AND RECEIVED REPLIED WITH ORDER FOR NS 0.9 500ML BOLUS AND AFTER THAT CONTINUE WITH NS 0.9% AT 100ML/HR, AND DC D5W FLUID THAT HE IS GETTING CURRENTLY, HE ALSO ORDERED TO KEEP PATIENT TELE, NOTED AND CARRIED OUT. PATIENT WITH FC NOTED YELLOW AND CLOUDY IN COLOR, PIV LINE IN LEFT LOWER LEG PATENT AND INTACT, AFEBRILE, WILL CONTINUE TO MONITOR CLOSELY
[2020-11-15] MEDS: IV NS 0.9% 1,000 ML IV SCH (23:28)
--- NOTE | 2020-11-15 23:40 | NUR ---
RN NOTES NS 500 ML BOLUS STARTED AT 2326. BP AT THIS TIME 102/36. HR 90. R 18. NO SIGNS OF RESPIRATORY DISTRESS. WILL CONTINUE TO MONITOR.
--- NOTE | 2020-11-16 00:30 | NUR ---
RN NOTE NS BOLUS DONE, PATIENT TOLERATED. BP 91/36 HR 88 R 20. STARTED NS 100 ML/HR. WILL CONTINUE TO MONITOR.
--- NOTE | 2020-11-16 02:00 | NUR ---
RN NOTE PATIENT NOTED WITH BP 74/38 HR 90. AND LOOKS LETHARGIC. DR HILLS MADE AWARE AND NO ORDER MADE PER MD STAY [facility] PATIENT. WILL CONTINUE TO MONITOR.
--- NOTE | 2020-11-16 06:21 | NUR ---
DRYING MACHINE TENDER NOTE PATIENT NOTED WITH O2 SAT 87-88 % ON 5 L NC. PUT ON NON REBREATHER MASK AT 15L. O2 SAT AT 93 %. BP ON 76/38 HR 87.
[2020-11-16 06:26] LABS: BASOPHILS % (AUTO) 0.2 % (0.0-2.0); HEMATOCRIT 22 % (39-51); HEMOGLOBIN 7.1 g/dL (13.5-17.5); LYMPHOCYTES # (AUTO) 0.7 /CMM (0.8-4.8); LYMPHOCYTES % (AUTO) 8.7 % (20.0-44.0); MEAN CORPUSCULAR HGB CONC 32 g/dl (31.0-36.0); MEAN CORPUSCULAR VOLUME 92 fL (80-96); MONOCYTES # (AUTO) 0.1 /CMM (0.1-1.30); NEUTROPHILS # (AUTO) 7.5 /CMM (1.8-8.9); NEUTROPHILS % (AUTO) 90.1 % (43.0-81.0); PLATELET COUNT (AUTO) 79 /CMM (150-450); RED BLOOD CELL COUNT(AUTO) 2.39 MIL/uL (4.5-6.0); WHITE BLOOD COUNT (AUTO) 8.3 K/uL (4.3-11.0)
[2020-11-16 07:04] LABS: CALCIUM, SERUM 7.5 mg/dL (8.5-10.1); CARBON DIOXIDE 17 mmol/L (21-32); CHLORIDE 106 mmol/L (98-107); CREATININE 2.6 mg/dL (0.6-1.3); GLUCOSE 69 mg/dL (74-106); POTASSIUM 3.9 mmol/L (3.5-5.1); SODIUM SERUM 140 mmol/L (136-145)
[2020-11-16 07:20] LABS: UREA NITROGEN, BLOOD 90 mg/dL (7-18)
--- NOTE | 2020-11-16 07:24 | NUR ---
RN CLOSING NOTES PATIENT REMAIN ON NON REBREATHER MASK 15 L SATING AT 95 %. NO RESPIRATORY DISTRESS NOTED. PT REMAIN HYPOTENSIVE. INFORMED DAY SHIFT NURSE FOR SUMAN. ON NS RUNNING AT 100 ML/HR. TOLERATING NO SIGNS OF INFILTRATION.. ISOLATION PRECAUTION OBSERVED FOR COVID. ALL SAFETY MEASURES IMPLEMENTED PER PROTOCOL, BED LOCKED IN LOWEST POSITION. SIDE RAILS UP X 2. CALL LIGHT WITHIN REACH
[2020-11-16] MEDS: PANTOPRAZOLE 40 MG TABLET.DR PO SCH ×2 (07:30→08:26)
--- NOTE | 2020-11-16 07:50 | NUR ---
RN OPENING NOTES PATIENT REMAIN ON NON REBREATHER MASK 15 L SATING AT 95 %. NO RESPIRATORY DISTRESS NOTED. PT REMAIN HYPOTENSIVE. GAVE BOLUS AND ON NS RUNNING AT 100 ML/HR. TOLERATING NO SIGNS OF INFILTRATION.SAFETY MEASUREMENTS ARE IMPLEMENTED PER HOSPITAL PROTOCOL. BED IS IN LOWEST POSITION AND LOCKED AND SIDE RAILS ARE UP X2. WILL CONTINUE TO MONITOR
--- NOTE | 2020-11-16 07:55 | NUR ---
RN NOTES BS IS 57 GOING TO ADMINISTER DEXTROSE AND RECHECK THE SUGAR
--- NOTE | 2020-11-16 08:00 | NUR ---
RN NOTES BP IS 71/48 ADMINISTERING BOLUS
[2020-11-16] MEDS: DEXAMETHASONE SOD PHOSPHATE 10 MG/ML VIAL IV SCH (08:25)
[2020-11-16] MEDS: MEGESTROL ACETATE 40 MG TABLET PO SCH ×2 (08:26→09:00)
[2020-11-16] MEDS: MULTIVITAMINS,THERAGRAN 1 UDTAB TABLET PO SCH ×2 (08:26→09:00)
[2020-11-16] MEDS: ASCORBIC ACID 500 MG TABLET PO SCH ×2 (08:26→09:00)
[2020-11-16] MEDS: MEMANTINE HCL 5 MG TABLET PO SCH ×2 (08:27→09:00)
[2020-11-16] MEDS: ZINC SULFATE 220 MG CAPSULE PO SCH ×2 (08:28→09:00)
[2020-11-16] MEDS: ESCITALOPRAM OXALATE (10 MG) 10 MG TABLET PO SCH ×2 (08:44→09:00)
[2020-11-16] MEDS: BLOOD SUGAR DIAGNOSTIC 1 EACH STRIP IN SCH ×4 (08:44→22:16)
[2020-11-16] MEDS: Z GUARD REMEDY 2 OZ OINT TP SCH (08:45)
[2020-11-16] MEDS: ENSURE ENLIVE 237 ML LIQUID (VANILLA) PO SCH ×3 (08:45→17:03)
[2020-11-16] MEDS: DAKINS QUARTER STRENGTH (0.125%) 480 ML BOTTLE TOP SCH (08:45)
--- NOTE | 2020-11-16 09:00 | NUR ---
RN NOTES' PT IS NOT ABLE TO SWALLOW PILLS NOT GOING TO ADMINISTER MEDS
[2020-11-16] MEDS: CEFTRIAXONE 1 G in IV D5W 50 ML IV SCH (11:06)
[2020-11-16] MEDS: IV NS 0.9% 1,000 ML IV SCH ×2 (11:06→19:03)
[2020-11-16] MEDS: MEROPENEM 500 MG in IV NS 0.9% 50 ML IV SCH (13:39)
[2020-11-16] MEDS: DOXYCYCLINE 100 MG in IV D5W 100 ML IV SCH ×2 (13:39→21:05)
[2020-11-16 13:51] LABS: ABG BASE EXCESS -9.4 mmol/L; ABG OXYGEN SATURATION 85.2 % (92.0-98.5); ABG PCO2 16.9 mmHg (35.0-45.0); ABG PH 7.492 (7.350-7.450); ABG PO2 50.3 mmHg (75.0-100.0); AaDO2 645.8 mmHg; COHb 0.6 % (0.5-1.5); MetHb 0.3 % (0.0-1.5); O2Hb 84.4 % (94.0-97.0); SITE, ABG Right Radial
--- NOTE | 2020-11-16 16:00 | NUR ---
RN NOTES PT IS NOT ABLE TO SWALLOW MEDS NOT ADMINISTERING PO PILL
--- NOTE | 2020-11-16 19:27 | NUR ---
RN CLOSING NOTES PATIENT IS STILL REMAINS ON NON REBREATHER MASK 15 L SATING AT 95 %. NO RESPIRATORY DISTRESS NOTED. PT REMAIN HYPOTENSIVE. INFORMED DAY SHIFT NURSE FOR SUMAN. ON NS RUNNING AT 100 ML/HR. TOLERATING NO SIGNS OF INFILTRATION.. ISOLATION PRECAUTION OBSERVED FOR COVID. ALL SAFETY MEASURES IMPLEMENTED PER PROTOCOL, BED LOCKED IN LOWEST POSITION. SIDE RAILS UP X 2. CALL LIGHT WITHIN REACH. WILL ENDORSE TO PM NURSE FOR SUMAN
[2020-11-16 19:48] LABS: C-REACTIVE PROTEIN 26.5 mg/dL (0.0-0.9)
[2020-11-16 20:00] VITALS: BP 76/46
[2020-11-16] MEDS ORDERED: IV NS 0.9% 500 ML IV ONE (20:00)
[2020-11-16] MEDS: risperiDONE 0.25 MG TABLET PO SCH (22:00)
[2020-11-16] MEDS: DOCUSATE SODIUM 100 MG CAPSULE PO SCH (22:00)
[2020-11-16] MEDS: ATORVASTATIN 10 MG TABLET PO SCH (22:00)
[2020-11-17] VITALS: BP 94/49
[2020-11-17] MEDS: MEROPENEM 500 MG in IV NS 0.9% 50 ML IV SCH (01:14)
--- NOTE | 2020-11-17 04:50 | NUR ---
PT BP IS IN 80s/50s AND 70s/40s, DR HILLS MADE AWARE, NO ORDER AT THIS TIME. PER DR HILLS " IF ASYMPTOMATIC I AM WAITING ON DECISION FROM FAMILY ABOUT COMFORT MEASURES. PT IS ASYMPTOMATIC AT THIS TIME.
--- NOTE | 2020-11-17 04:54 | NUR ---
RECEIVED ORDER FOR D5W 100 ML/HR FROM DR HILLS.
[2020-11-17] MEDS ORDERED: IV D5W 1,000 ML IV PRN (05:00)
[2020-11-17 07:24] LABS: LYMPHOCYTES # (AUTO) 0.7 /CMM (0.8-4.8); LYMPHOCYTES % (AUTO) 8.2 % (20.0-44.0); MEAN CORPUSCULAR HGB CONC 32 g/dl (31.0-36.0); MEAN CORPUSCULAR VOLUME 91 fL (80-96); MONOCYTES # (AUTO) 0.1 /CMM (0.1-1.30); MONOCYTES % (AUTO) 1.2 % (2.0-12.0); NEUTROPHILS # (AUTO) 7.8 /CMM (1.8-8.9); NEUTROPHILS % (AUTO) 90.6 % (43.0-81.0); PLATELET COUNT (AUTO) 78 /CMM (150-450); RED BLOOD CELL COUNT(AUTO) 2.24 MIL/uL (4.5-6.0); WHITE BLOOD COUNT (AUTO) 8.6 K/uL (4.3-11.0)
--- NOTE | 2020-11-17 07:30 | NUR ---
PT STAYED STABLE, NO ACUTE CHANGES REPORT GIVEN TO INCOMING SHIFT FOR SUMAN.
[2020-11-17 07:34] LABS: CALCIUM, SERUM 7.4 mg/dL (8.5-10.1); CARBON DIOXIDE 15 mmol/L (21-32); CHLORIDE 111 mmol/L (98-107); CREATININE 2.6 mg/dL (0.6-1.3); GLUCOSE 101 mg/dL (74-106); MAGNESIUM 2.1 mg/dL (1.8-2.4); PHOSPHORUS 6.8 mg/dL (2.5-4.9); POTASSIUM 4.1 mmol/L (3.5-5.1); SODIUM SERUM 142 mmol/L (136-145)
[2020-11-17 07:41] LABS: UREA NITROGEN, BLOOD 91 mg/dL (7-18)
[2020-11-17 08:05] LABS: HEMATOCRIT 20 % (39-51); HEMOGLOBIN 6.6 g/dL (13.5-17.5)
--- NOTE | 2020-11-17 08:09 | NUR ---
TELE/RN NOTES RECEIVED PATIENT ON BED. PATIENT IN NO APPARENT RESPIRATORY DISTRESS NOTED. NO SIGN AND SYMPTOM OF PAIN AT THIS TIME. TELE MONITOR. IN PLACED READING SINUS RHYTHM 76BPM. HGB 6.6 HCT 20 MD IS AWARE. NO NEW ORDER AT THIS TIME. WILL CONTINUE TO MONITOR.
--- NOTE | 2020-11-17 08:30 | NUR ---
TELE/RN NOTES PATIENT BP 84/38 P 81. SA02 98 %. WILL CONTINUE TO MONITOR.
[2020-11-17] MEDS: ENSURE ENLIVE 237 ML LIQUID (VANILLA) PO SCH (09:00)
[2020-11-17] MEDS: Z GUARD REMEDY 2 OZ OINT TP SCH (09:00)
[2020-11-17] MEDS: DAKINS QUARTER STRENGTH (0.125%) 480 ML BOTTLE TOP SCH (09:00)
--- NOTE | 2020-11-17 09:19 | NUR ---
TELE/RN NOTES DR. HILLS ORDER DNI-DNI AND NO HEMODIALYSIS. NOTED AND CARRIED OUT.
[2020-11-17 09:20] LABS: ALANINE AMINOTRANSFERASE 86 U/L (12-78); ALKALINE PHOSPHATASE 92 U/L (46-116); ASPARTATE AMINOTRANSFERASE 150 U/L (15-37); BILIRUBIN,TOTAL 0.5 mg/dL (0.2-1.0); TOTAL PROTEIN, SERUM 4.6 g/dL (6.4-8.2)
--- NOTE | 2020-11-17 09:37 | NUR ---
TELE/RN NOTES DR. RAY ORDER NS 250 ML WIDE OPEN. NOTED AND CARRIED OUT.
[2020-11-17 09:39] LABS: LYMPHOCYTES % (MANUAL) 5 % (16-48); MONOCYTES % (MANUAL) 1 % (0-11.0); NEUTROPHILS % (MANUAL) 94 (42-76)
[2020-11-17 09:41] LABS: ALBUMIN 0.9 g/dL (3.4-5.0)
[2020-11-17] MEDS: BLOOD SUGAR DIAGNOSTIC 1 EACH STRIP IN SCH (10:19)
[2020-11-17] MEDS: DOXYCYCLINE 100 MG in IV D5W 100 ML IV SCH (10:22)
[2020-11-17] MEDS: DEXAMETHASONE SOD PHOSPHATE 10 MG/ML VIAL IV SCH (10:23)
[2020-11-17] MEDS ORDERED: IV NS 0.9% 250 ML IV ONE (10:30)
--- NOTE | 2020-11-17 12:50 | NUR ---
non verbal and non responsive with out any pulses ,shot blast equipment operator showed pulse less electrical activity [phone] admitting and nursing passenger car cleaning supervisor was notified at this time organ donation notified case # is CC [id number] family was notified at this time
--- NOTE | 2020-11-17 16:27 | NUR ---
RN NOTES BODY WAS TAKEN BY THE MORTUARY EMPLOYEE.
== END 2020-11-17 12:50 | disposition expired | DRG 853 ==
LOC: ER 09:57 → TELE1 19:39 → TELE 20:39 → MED 11-09 14:09 → MEDSG1 11-15 21:45 → TELE1 11-15 22:51
PROVIDERS: ADMIT Legal Medicine; ATTEND Legal Medicine
PROC: 30233N1 Transfusion of Nonautologous Red Blood Cells into Peripheral Vein, Percutaneous Approach (ICD-10-PCS; 2020-11-04)
PROC: 0QB10ZZ Excision of Sacrum, Open Approach (ICD-10-PCS; principal; 2020-11-07)
PROC: 0QB10ZZ Excision of Sacrum, Open Approach (ICD-10-PCS; 2020-11-15)
PROC: 05HY33Z Insertion of Infusion Device into Upper Vein, Percutaneous Approach (ICD-10-PCS; 2020-11-15)
DX: A41.89 Other specified sepsis (principal); L89.154 Pressure ulcer of sacral region, stage 4; G92 Toxic encephalopathy; E43 Unspecified severe protein-calorie malnutrition; U07.1 COVID-19; J12.89 Other viral pneumonia; N17.9 Acute kidney failure, unspecified; N39.0 Urinary tract infection, site not specified; E87.0 Hyperosmolality and hypernatremia; D62 Acute posthemorrhagic anemia; E87.2 Acidosis; N10 Acute pyelonephritis; M46.28 Osteomyelitis of vertebra, sacral and sacrococcygeal region; I12.9 Hypertensive chronic kidney disease with stage 1 through stage 4 chronic kidney disease, or unspecified chronic kidney disease; N18.9 Chronic kidney disease, unspecified; D64.9 Anemia, unspecified; R65.20 Severe sepsis without septic shock; E87.5 Hyperkalemia; E11.22 Type 2 diabetes mellitus with diabetic chronic kidney disease; Z66 Do not resuscitate; Z51.5 Encounter for palliative care; E78.00 Pure hypercholesterolemia, unspecified; E78.5 Hyperlipidemia, unspecified; Z74.01 Bed confinement status; Z79.899 Other long term (current) drug therapy; F03.90 Unspecified dementia, unspecified severity, without behavioral disturbance, psychotic disturbance, mood disturbance, and anxiety; E11.69 Type 2 diabetes mellitus with other specified complication; N40.0 Benign prostatic hyperplasia without lower urinary tract symptoms; Y95 Nosocomial condition; A41.51 Sepsis due to Escherichia coli [E. coli]; E86.0 Dehydration; S41.112A Laceration without foreign body of left upper arm, initial encounter; X58.XXXA Exposure to other specified factors, initial encounter; Y92.9 Unspecified place or not applicable
CPT/HCPCS: 36410; 36415; 36600; 70450-TC; 71045-TC; 76770-TC; 80048-TC; 80053-TC; 80076-TC; 81001; 82550-TC; 82728-TC; 82803-TC; 82962-TC; 83540-TC; 83615-TC; 83690-TC; 83735-TC; 83970; 84100-TC; 84155; 84165; 84484-TC; 85025-TC; 85378-TC; 85730-TC; 86140-TC; 86850-TC; 87040-TC; 87070-TC; 87081-TC; 87086-TC; 87186-TC; 92526; 92611-TC; 94760-TC; 94799-TC; A4217; A6253; A6403; A9563; C9803; G0378; J0696; J1100; J1815; J1940; J2185; J3475; J3480; J3490; J7030; J7040; J7042; J7050; J7060; J7070; P9016-BL